=== PATIENT | female | born 1945 | race Caucasian/White ===

== ENCOUNTER → 2017-12-18 13:44 | Outpatient (CLI) | payer OTHER, SELFPAY ==
--- NOTE | 2017-12-20 08:23 | ONE_ITS ---
DATE OF SERVICE: December 18, 2017 ASSESSMENT: Lumbar strain, improved. PLAN: She understands she needs to continue with regular stretches. She can continue with the other conser vative measures as above. I'm releasing her today at [facility]. Greater than 50% of this visit was spent in planning and coordinating care. EMPLOYER: [employer] SUBJECTIVE: Mrs. French returns for further follow-up on low back pain which continues to be well-controlled. S he says she experiences an occasional tweak but it doesn't last. She's managing these minor flare- ups with occasional Aleve. She says she takes one tablet not even on a daily basis. She also uses I cy Hot which she tells me is quite helpful. When the pain does occur it's in the left lumbar region, it does not radiate. It is not associated with any particular numbness, tingling, or paresthesias o f lower extremities. REVIEW OF SYSTEMS: Feels generally well. Expresses some concern and distress about a current family issue which is trou yogesh to her. Otherwise she has no abdominal pain, nausea, vomiting, or GI complaints, numbness, tin gling, or paresthesias of lower extremities. No loss of bladder or bowel control. PAST MEDICAL HISTORY: 1. Carpal tunnel repair. 2. Cardiac murmur. 3. Hypertension. 4. Depression. 5. Anxiety. 6. Diabetes. CURRENT MEDICATIONS: 1. Lisinopril. 2. Metformin. 3. Levemir. 4. Vitamins. 5. Icy Hot PRN. 6. Aleve PRN. OBJECTIVE: General: Alert, pleasant, cooperative. She's a little weepy, again, related to an outside situation. Musculoskeletal exam: No tenderness to direct palpation over the lumbar vertebrae. Very mild tenderness over the left SI j oint. DTRs: Prepatellars are 1+ bilaterally. Achilles are 1+ bilaterally. Straight leg raises are negative. Each leg extends nearly 90 degrees without discomfort. There is a little hamstring tightness on the left. Range of motion: Fingertips reach to toes. There is no pain at the end of flexion, extension, latera l bend, or rotation. Heel and toe walk are intact. Sensory of lower extremities is intact.
== END ==
PROVIDERS: PCP Family Medicine; Visit Provider Nurse Practitioner Family
DX: S39.012D Strain of muscle, fascia and tendon of lower back, subsequent encounter (principal); M54.5 Low back pain
CPT/HCPCS: 99214

== ENCOUNTER → 2018-01-08 13:25 | Outpatient (CLI) | payer OTHER, SELFPAY ==
--- NOTE | 2018-01-08 13:00 | DI.REPORT_ITS ---
SYMPTOMS/DIAGNOSIS: NECK PAIN, ACUTE, M54.2 CERVICAL SPINE: Odontoid, AP, lateral and bilateral oblique views were obtained. No priors. The odontoid is intact. The lateral masses are well aligned. There is slight motion artifact present. There is normal alignment of the cervical spine. There is moderate disc space narrowing at C6-C7. Endplate osteophytes are seen from C4-5 through C6-C7. There are degenerative changes of the facets throughout the cervical spine. There is mild narrowing of the neural foramen on the right at C4-5, C5-6 and C6-7 and on the left at C4-5, and C5-6 and C6-7. No acute fractures or subluxations are seen. There is no significant prevertebral soft tissue swelling. IMPRESSION: Moderate cervical spondylosis.
== END ==
PROVIDERS: PCP Family Medicine; Visit Provider Nurse Practitioner Family
DX: M54.2 Cervicalgia (principal); M47.812 Spondylosis without myelopathy or radiculopathy, cervical region
CPT/HCPCS: 72050

== ENCOUNTER 2019-04-10 10:44 | Outpatient (REF) | payer OTHER, SELFPAY ==
[2019-04-10 12:48] LABS: ALT 23 U/L (14-59); AST 18 U/L (15-37); Albumin 3.6 g/dL (3.4-5.0); Alkaline Phosphatase 69 U/L (46-116); Anion Gap 9.5 mmol/L (3-11); BUN 14 mg/dL (7-18); Bilirubin, Total 0.4 mg/dL (0.2-1.0); CO2 27.5 mmol/L (21.0-32.0); CREATININE 0.87 mg/dL (0.55-1.02); Calcium 8.7 mg/dL (8.5-10.1); Chloride 102 mmol/L (98-107); Glucose 217 mg/dL (74-106); Potassium 4.5 mmol/L (3.5-5.1); Sodium 139 mmol/L (136-145); Total Protein 6.6 g/dL (6.4-8.2)
[2019-04-10 14:31] LABS: HCT 37.1 % (36.0-46.0); Mean Corp. HGB Concentration 32.3 g/dL (32.0-36.0); Mean Corpuscular Hemoglobin 30.8 pg (27.0-33.0); Mean Corpuscular Volume 95.4 fL (80-95); Platelet Count 362 x1000/uL (130-400); RBC 3.89 m/cumm (4.00-5.20); White Blood Cell Count 5.24 k/cumm (4.4-10.8)
== END 2019-04-10 11:04 ==
LOC: NCHCN 10:44
PROVIDERS: PCP Family Medicine; Visit Provider Family Medicine
DX: E11.9 Type 2 diabetes mellitus without complications (principal); H20.9 Unspecified iridocyclitis
CPT/HCPCS: 80053; 85027; 83036

== ENCOUNTER 2019-10-22 13:04 | Outpatient (REF) | payer OTHER, SELFPAY ==
[2019-10-23 11:29] LABS: COVID-19 RT-PCR UVMMC Result Negative (Negative)
== END 2019-10-22 13:24 ==
LOC: NCHCN 13:04
PROVIDERS: PCP Family Medicine; Visit Provider Family Medicine
DX: Z20.828 Contact with and (suspected) exposure to other viral communicable diseases (principal)
CPT/HCPCS: U0003

== ENCOUNTER 2020-07-27 01:23 | Outpatient (CLI) | payer MEDICARE, SELFPAY ==
--- NOTE | 2020-07-27 15:52 | DI.MAMMO_ITS ---
EXAM: MAMMO SCREENING CLINICAL HISTORY: SCREENING, Z12.31. TECHNIQUE: Bilateral full field digital CC and MLO mammographic images were obtained with 3D tomosyn thesis and utilizing computer aided detection (CAD). COMPARISON: Prior outside mammograms dating back to 2010, the most recent being February 2019. FINDINGS: There are no new findings in the immediate vicinity of the biopsy marker clips which are seen in both breasts. No new right breast findings. Stable benign microcalcifications again noted. In the left breast there is stable appearance of the microcalcifications but there is a possible subt le nodule measuring 7 x 5 millimeters located 4 cm in from the nipple on the MLO view. Spot compress ion view recommended. There is no new architectural distortion or skin thickening-traction IMPRESSION: 1. No radiographic evidence of malignancy in the right breast 2. Subtle suggestion of 7 x 5 millimeter left breast nodule as described above. Spot compression 2D and 3D views recommended and possible also ultrasound. BI-RADS Category 0 - Assessment Incomplete: Need additional imaging evaluation Breast Density - Category C - Heterogeneously dense Breast density Category C or D implies that the patient has dense breast tissue. Dense breast tissue can make it harder to find cancer on a mammogram. Dense breast tissue is also associated with an incr eased risk of breast cancer. This information about the result of the mammogram report was provided to the patient to raise their awareness. Use this report when you speak with the patient about their risks for breast cancer, which includes their family history. At that time, you may recommend additional screening tests (Ultrasoun d or MRI) as these tests may add significant information. A negative radiographic report should not delay biopsy if a dominant or clinically suspicious mass is present. Up to ten percent of cancers are not identified on mammography. A negative report may reinforce clinical impression. Adenosis and dense breasts may obscure an underlying neoplasm. False positive reports average 6 to 10%. Patient will receive a letter notifying them of these results.
== END 2020-07-27 01:43 ==
PROVIDERS: PCP Family Medicine; Visit Provider Family Medicine
DX: Z12.31 Encounter for screening mammogram for malignant neoplasm of breast (principal); R92.8 Other abnormal and inconclusive findings on diagnostic imaging of breast
CPT/HCPCS: 77063; 77067

== ENCOUNTER → 2020-08-03 02:33 | Outpatient (CLI) | payer OTHER, SELFPAY ==
--- NOTE | 2020-08-03 | DI.MAMMO_ITS ---
EXAM: MG MAMMO SCREEN CALL BACK UNI CLINICAL HISTORY: F/U MAMMO, SUBTLE SUGGESTION LT BREAST NODULE,. TECHNIQUE: This patient has now returned for sys 3D spot compression MLO view of left breast, as per recent screening mammogram 07/27/2020 COMPARISON: Prior mammograms dating back to 2010, the most recent being 07/27/2020. FINDINGS: Additional spot compression mammographic view performed today appears to dissipate the nodule describ ed on the recent screening mammogram. We nevertheless proceeded with ultrasound of the left breast. This revealed a solid corresponding fi nding at the 12 o'clock position which has the appearance of a 5 x 4 millimeter (wider than taller) p robable hemorrhagic microcyst. IMPRESSION: 5 x 4 millimeter 12 o'clock position nodule which is well-defined, wider than taller, and may represe nt a hemorrhagic microcyst. Appropriate follow-up, as discussed by myself with the patient today, is repeat left breast imaging i n 3 months time, this to include repeat left breast mammogram and ultrasound. BI-RADS Category 3 - 3 month - Probably Benign Finding: Recommend follow-up mammography in 3 months Breast Density - Category C - Heterogeneously dense Breast density Category C or D implies that the patient has dense breast tissue. Dense breast tissue can make it harder to find cancer on a mammogram. Dense breast tissue is also associated with an incr eased risk of breast cancer. This information about the result of the mammogram report was provided to the patient to raise their awareness. Use this report when you speak with the patient about their risks for breast cancer, which includes their family history. At that time, you may recommend additional screening tests (Ultrasoun d or MRI) as these tests may add significant information. A negative radiographic report should not delay biopsy if a dominant or clinically suspicious mass is present. Up to ten percent of cancers are not identified on mammography. A negative report may reinforce clinical impression. Adenosis and dense breasts may obscure an underlying neoplasm. False positive reports average 6 to 10%. Patient will receive a letter notifying them of these results.
--- NOTE | 2020-08-03 | DI.US_ITS ---
EXAM: US BREAST LT COMPLETE CLINICAL HISTORY: F/u mammo, subtle suggestion LT breast nodule. TECHNIQUE: Ultrasound examination of all 4 quadrants of the left breast was performed as well as the retroareolar regions. COMPARISON: Prior mammograms were reviewed, most recent being screening mammogram of 07/27/2020 and today's diagnostic left breast mammographic image.. FINDINGS: There is a solitary ultrasound finding which is at the 12 o'clock position. This is an oval well-def ined slightly wider than taller 5 x 4 millimeter nodule which is either hemorrhagic microcyst or smal l solid nodule. No other focal ultrasound findings in the 4 quadrants. IMPRESSION: 5 x 4 millimeter 12 o'clock position nodule, possibly hemorrhagic microcyst or small solid nodule. R ecommend repeat left breast mammogram and ultrasound in 3 months. Findings are recommendations were discussed by myself with the patient today. BI-RADS Category 3 - 3 month - Probably Benign Finding: Recommend follow-up mammography in 3 months Breast Density - Category C - Heterogeneously dense Breast density Category C or D implies that the patient has dense breast tissue. Dense breast tissue can make it harder to find cancer on a mammogram. Dense breast tissue is also associated with an incr eased risk of breast cancer. This information about the result of the mammogram report was provided to the patient to raise their awareness. Use this report when you speak with the patient about their risks for breast cancer, which includes their family history. At that time, you may recommend additional screening tests (Ultrasoun d or MRI) as these tests may add significant information. A negative radiographic report should not delay biopsy if a dominant or clinically suspicious mass is present. Up to ten percent of cancers are not identified on mammography. A negative report may reinforce clinical impression. Adenosis and dense breasts may obscure an underlying neoplasm. False positive reports average 6 to 10%. Patient will receive a letter notifying them of these results.
== END ==
PROVIDERS: PCP Family Medicine; Visit Provider Family Medicine
DX: Z12.31 Encounter for screening mammogram for malignant neoplasm of breast (principal); R92.8 Other abnormal and inconclusive findings on diagnostic imaging of breast; N60.02 Solitary cyst of left breast
CPT/HCPCS: 76642; 77063; 77067

== ENCOUNTER 2020-11-09 02:13 | Outpatient (CLI) | payer MEDICARE, SELFPAY ==
--- NOTE | 2020-11-09 15:31 | DI.MAMMO_ITS ---
Exam(s) MG MAMMO DIAGNOSTIC UNI EXAM: MAMMO DIAGNOSTIC UNI-LEFT CLINICAL HISTORY: HX OF ABNL MAMMO, Z87.898. TECHNIQUE: Unilateral spot mammographic images were obtained with 3D Tomosynthesistechnique and util izing computer aided detection (CAD). COMPARISON: Prior mammograms dating back to 2012, the most recent being July 1020. Prior ultrasoun d July 2020 was also reviewed. FINDINGS: Fibroglandular tissue in left breast is again noted be moderately dense, this decreasing sensitivity mammogram finding in lesions. There are no difficult radiographic findings in the immediate vicinity of biopsy marker clip the mid aspect of the left breast. The previously described nodular density seen on the mammogram of 021 is less evident on the present study. However, please note that there is still no ultrasound finding at this location on today's ultrasound which is unchanged from the ultrasound of July 2020. Please see that separate ultrasound report. IMPRESSION: No radiographic evidence of malignancy However, there is still a finding at the 12 o'clock position of the left breast on ultrasound examina tion measuring approximately 5 x 4 millimeters and probably hemorrhagic cyst, this remaining unchange d in size configuration ultrasound when compared to 08/03/2020. Appropriate follow-up is repeat left breast ULTRASOUND in 6 months. The patient was informed of the findings and follow-up recommendations prior to leaving the [facility] today. BI-RADS Category 3 - 6 month - Probably Benign Finding: Recommend follow-up ULTRASOUND in 6 months Breast Density - Category C - Heterogeneously dense Breast density Category C or D implies that the patient has dense breast tissue. Dense breast tissue can make it harder to find cancer on a mammogram. Dense breast tissue is also associated with an incr eased risk of breast cancer. This information about the result of the mammogram report was provided to the patient to raise their awareness. Use this report when you speak with the patient about their risks for breast cancer, which includes their family history. At that time, you may recommend additional screening tests (Ultrasoun d or MRI) as these tests may add significant information. A negative radiographic report should not delay biopsy if a dominant or clinically suspicious mass is present. Up to ten percent of cancers are not identified on mammography. A negative report may reinforce clinical impression. Adenosis and dense breasts may obscure an underlying neoplasm. False positive reports average 6 to 10%. Patient will receive a letter notifying them of these results.
--- NOTE | 2020-11-09 15:45 | DI.US_ITS ---
Exam(s) US BREAST LT COMPLETE EXAM: US BREAST LT COMPLETE CLINICAL HISTORY: history of abnormal mammo. TECHNIQUE: Complete ultrasound of the left breast was performed including all 4 quadrants, the retro areolar region, and the ipsilateral axilla. COMPARISON: Prior mammograms were reviewed. Prior ultrasound performed 08/03/2020 was reviewed. FINDINGS: At 12 o'clock position the previously described 5 x 4 millimeter nodule-probable hemorrhagic microcys t at the 12 o'clock position is unchanged in size and configuration. Today's study also reveals a 3 millimeter microcysts at the 1 o'clock position and another small 3 mi llimeter microcyst at the 11 o'clock position. No findings in the immediate retroareolar region. Left axilla is negative for adenopathy IMPRESSION: Stable appearance of the 5 x 4 millimeter nodule at 12 o'clock position, unchanged from the ultrasoun d examination of 3 months ago (08/03/2020). This is hidden subjacent to her dense fibroglandular tis wally on mammography. Appropriate follow-up is repeat left breast ULTRASOUND in 6 months. . Findings and recommendations were discussed by myself with the patient today. BI-RADS Category 3 - 6 month - Probably Benign Finding: Recommend follow-up mammography in 6 months Breast Density - Category C - Heterogeneously dense Breast density Category C or D implies that the patient has dense breast tissue. Dense breast tissue can make it harder to find cancer on a mammogram. Dense breast tissue is also associated with an incr eased risk of breast cancer. This information about the result of the mammogram report was provided to the patient to raise their awareness. Use this report when you speak with the patient about their risks for breast cancer, which includes their family history. At that time, you may recommend additional screening tests (Ultrasoun d or MRI) as these tests may add significant information. A negative radiographic report should not delay biopsy if a dominant or clinically suspicious mass is present. Up to ten percent of cancers are not identified on mammography. A negative report may reinforce clinical impression. Adenosis and dense breasts may obscure an underlying neoplasm. False positive reports average 6 to 10%. Patient will receive a letter notifying them of these results.
== END 2020-11-09 02:33 ==
PROVIDERS: PCP Family Medicine; Visit Provider Family Medicine
DX: R92.2 Inconclusive mammogram (principal); N63.25 Unspecified lump in the left breast, overlapping quadrants; Z87.898 Personal history of other specified conditions
CPT/HCPCS: 76642; 77061; 77065; G0279

== ENCOUNTER 2021-05-17 00:30 | Outpatient (CLI) | payer MEDICARE, SELFPAY ==
--- NOTE | 2021-05-17 | DI.US_ITS ---
Exam(s) US BREAST LT COMPLETE EXAM: US BREAST LT COMPLETE CLINICAL HISTORY: ABNL MAMMO LT, R92.8, 6 MO F/U TECHNIQUE: Ultrasound left breast performed using standard protocol. COMPARISON: MG MG MAMMO SCREENING from 07/27/2020 US US BREAST LT COMPLETE from 11/09/2020 MG MG MAMMO DIAGNOSTIC UNI from 11/09/2020 FINDINGS: No change 5 millimeter circumscribed hypoechoic nodule 12 o'clock position 1 cm from the nipple. 2 m illimeter cyst is noted in the 1 o'clock position 1 cm from the nipple. Previously noted cyst in the 11 o'clock position was not able to be located today. IMPRESSION: No sonographically suspicious finding. BI-RADS Category 2 - Benign Findings The patient is due for bilateral screening mammography July 2021. DATA REPOSITORY:
== END 2021-05-17 00:50 ==
PROVIDERS: PCP Family Medicine; Visit Provider Family Medicine
DX: R92.8 Other abnormal and inconclusive findings on diagnostic imaging of breast (principal); N60.12 Diffuse cystic mastopathy of left breast
CPT/HCPCS: 76642

== ENCOUNTER 2021-05-24 10:44 | Outpatient (REF) | payer MEDICARE, SELFPAY ==
--- NOTE | 2021-05-24 11:00 | SKI_PTH ---
PATIENT: Bettye French LOC: [facility]GED WITH [facility]#:[id number] AGE/SX: 76/F ROOM: RE05/24/[address]: Eriberto Castaneda : 1945 BED: DIS: 05/24/2021 SPEC #: [id number] RECD: 05/24/21 16:46 STATUS: TATE REQ #: [id number] COURTNEY: 05/24/21 11:[address]: Eriberto Castaneda DEPT: Surgical Specimen RECD BY: Rosemarie Gonzales ENTERED: 05/24/21 16:46 SP TYPE: JOHAN MOTLEY DR: Macrina Gonzales Tissues: 1 - SKIN BIOPSY(SHAVE/PUNCH) Procedures: SKIN LEVEL 4 Comments: [id number]
[2021-05-24 14:53] LABS: HCT 37.8 % (36.0-46.0); HGB 12.4 g/dL (11.2-15.7); MCH 32.1 pg (27.0-33.0); MCHC 32.8 % (32.0-36.0); MCV 97.9 fL (80-95); MPV 9.8 fL (8.0-11.0); Platelet Count 331 10^3/uL (130-400); RBC 3.86 10^6/uL (3.93-5.22); RDW 12.7 % (11.7-14.6); WBC 6.19 10^3/uL (4.4-10.8)
[2021-05-24 15:21] LABS: ALT 24 U/L (14-59); AST 19 U/L (15-37); Alkaline Phosphatase 67 U/L (46-116); Anion Gap 7.3 mmol/L (3-11); BUN 16 mg/dL (7-18); Bilirubin, Total 0.6 mg/dL (0.2-1.0); CO2 28.7 mmol/L (21.0-32.0); Chloride 102 mmol/L (98-107); Glucose 180 mg/dL (74-106); Potassium 4.9 mmol/L (3.5-5.1); Sodium 138 mmol/L (136-145); Total Protein 6.7 g/dL (6.4-8.2)
== END 2021-05-24 10:45 | disposition home or self-care (01) ==
LOC: NCHCN 10:44
PROVIDERS: PCP Family Medicine; Visit Provider Family Medicine
DX: I10 Essential (primary) hypertension (principal); L82.1 Other seborrheic keratosis
CPT/HCPCS: 80053; 85027; 88305

== ENCOUNTER 2021-07-12 01:32 | Outpatient (CLI) | payer MEDICARE, SELFPAY ==
--- NOTE | 2021-07-12 14:00 | NS.NUTBLAN_ITS ---
Bettye returns for diabetes self management education. DM meds: 5 mg glipizide, 40 units lantus hs, 1000 mg metformin q AM. Blood sugar logs (06/29-07/12/21) Fasting blood sugars: 84, 91, 180, 150, 90 pre meal blood sugars: 180, 200, 220, 120, 63 Post prandial blood sugars: 250, 350, 370, 150, 180 Most recent A1C reported 8.8%, down from 10% couple years ago. 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 She reports that she is able to notice when her blood sugars go below 80 mg/dl. The hypoglycemic event occurred when she ate dinner a couple of hours late. We discussed the 15/15 rule for low blood sugars and importance of keeping carb snacks handy when these events occur. We reviewed her hyperglycemic events pre and post meals. She has not made any changes to her diet after seeing my colleague last month, however, overall her diet is well balanced. She would benefit from carb counting and keeping carb intake to 30-35 g per meal, paired with 15-25 g protein. We discussed treatment for hyperglycemia by increasing fluid intake and calling PCP if blood sugars above 300 mg/dl. Reviewed signs and symptoms of HHNK (hyperglycemic hyperosmolar non keto acidosis in elderly). Bettye would like to get off long acting insulin as it is very costly (co pay $220/month). Recommend considering a GLP1ra or SGLT2 as glycemic management still not in range with current long acting dose. Goal is for A1C <8.5% in view of age and comorbidities. No follow up planned at this time.
== END 2021-07-12 01:33 | disposition home or self-care (01) ==
LOC: DS 01:33
PROVIDERS: PCP Family Medicine; Visit Provider Dietitian, Registered
DX: E11.9 Type 2 diabetes mellitus without complications (principal); Z79.4 Long term (current) use of insulin; Z79.84 Long term (current) use of oral hypoglycemic drugs; Z71.3 Dietary counseling and surveillance
CPT/HCPCS: 97803

== ENCOUNTER 2021-08-02 02:20 | Outpatient (CLI) | payer MEDICARE, SELFPAY ==
--- NOTE | 2021-08-02 | DI.MAMMO_ITS ---
Exam(s) MAMMO SCREENING EXAM: MAMMO SCREENING CLINICAL HISTORY: SCREENING FOR BREAST CANCER Z12.39. TECHNIQUE: Bilateral full field digital CC and MLO mammographic images were obtained with 3D tomosyn thesis and utilizing computer aided detection (CAD). COMPARISON: Prior mammograms were reviewed, the most recent being July 2020 and 11/09/2020.. Prior left breast ultrasound examinations of November 02 and June 05 reviewed FINDINGS: There are no new findings in the immediate vicinity of the biopsy marker clips in each breast. There is a microcalcification in the left breast located 5 cm in from the nipple on CC view which is unchanged from prior studies. There are no new spiculated masses nor new malignant appearing microcalcification groups. Small medially located nodule in left breast is unchanged from prior studies. On the present right breast MLO view there are 2 potential findings.... First leak, there is an asymmetric density-possible nodule measuring 5 x 5 millimeters located 4 cm i n from the nipple on the 3D MLO view. More superiorly on the right MLO view there is a 10 by a 8 mil limeter asymmetric density-possible nodule located 7.5 cm in from the nipple which is more evident on prior studies.. There are no new malignant-appearing microcalcification groups in either breast. There is no new architectural distortion or skin thickening-traction. IMPRESSION: 1. No obvious radiographic evidence of malignancy in left breast. 2. 2 asymmetric densities-possible nodules in the right breast. Both best seen on 3D MLO imaging. S pot compression views and ultrasound recommended. BI-RADS Category 0 - Assessment Incomplete: Need additional imaging evaluation Breast Density - Category B - Scattered areas of fibroglandular density Breast density Category C or D implies that the patient has dense breast tissue. Dense breast tissue can make it harder to find cancer on a mammogram. Dense breast tissue is also associated with an incr eased risk of breast cancer. This information about the result of the mammogram report was provided to the patient to raise their awareness. Use this report when you speak with the patient about their risks for breast cancer, which includes their family history. At that time, you may recommend additional screening tests (Ultrasoun d or MRI) as these tests may add significant information. A negative radiographic report should not delay biopsy if a dominant or clinically suspicious mass is present. Up to ten percent of cancers are not identified on mammography. A negative report may reinforce clinical impression. Adenosis and dense breasts may obscure an underlying neoplasm. False positive reports average 6 to 10%. Patient will receive a letter notifying them of these results.
== END 2021-08-02 02:40 ==
PROVIDERS: PCP Family Medicine; Visit Provider Family Medicine
DX: Z12.31 Encounter for screening mammogram for malignant neoplasm of breast (principal); R92.8 Other abnormal and inconclusive findings on diagnostic imaging of breast
CPT/HCPCS: 77063; 77067

== ENCOUNTER 2021-08-30 01:39 | Outpatient (CLI) | payer MEDICARE, SELFPAY ==
--- NOTE | 2021-08-30 13:56 | DI.MAMMO_ITS ---
Exam(s) MG MAMMO SCREEN CALL BACK UNI US BREAST RT LIMITED EXAM: MG MAMMO SCREEN CALL BACK UNI CLINICAL HISTORY: F/U ABNL MAMMO, TWO ASYMMETRIC DENSITIES IN RT BREAST ON MLO VIEW. TECHNIQUE: Craniocaudal and mediolateral oblique spot compression digital Mammography views of the r ight breast with Computer Aided Diagnosis followed by Tomosynthesis and right breast ultrasound. COMPARISON: Mammograms back to 2013. FINDINGS: Mammography/Tomosynthesis: Masses/Architectural Distortion: Increased focal density in the upper outer quadrant of the right kami ast posteriorly near an area of biopsy marker, unchanged in appearance over time. Microcalcifictions: No suspicious pleomorphic-type are seen. Skin Thickening/Nipple Retraction: None. Right breast US: Echotexture: Normal appearance of the glandular tissue. Shadowing: No suspicious foci. Shadowing is noted related to biopsy marker clip. No adjacent mass. Cyst: None. Solid lesions: None seen. Ductal dilation: None. IMPRESSION: 1. No evidence of malignancy is noted. 2. Unless there is more urgent need, follow-up screening mammography is recommended, as per [place] [employer] guidelines. 3. The findings were discussed with the patient on the date of the examination. BI-RADS Category 2 - Benign Findings Breast Density - Category B - Scattered areas of fibroglandular density A negative radiographic report should not delay biopsy if a dominant or clinically suspicious mass is present. Up to ten percent of cancers are not identified on mammography. A negative report may reinforce clinical impression. Adenosis and dense breasts may obscure an underlying neoplasm. False positive reports average 6 to 10%. Patient will receive a letter notifying them of these results.
== END 2021-08-30 01:59 ==
PROVIDERS: PCP Family Medicine; Visit Provider Family Medicine
DX: Z12.31 Encounter for screening mammogram for malignant neoplasm of breast (principal); R92.8 Other abnormal and inconclusive findings on diagnostic imaging of breast; N60.81 Other benign mammary dysplasias of right breast; N63.11 Unspecified lump in the right breast, upper outer quadrant
CPT/HCPCS: 76642; 77063; 77067

== ENCOUNTER 2021-10-04 11:47 | Outpatient (REF) | payer MEDICARE, SELFPAY ==
[2021-10-04 15:28] LABS: HCT 33.5 % (36.0-46.0); HGB 10.7 g/dL (11.2-15.7); MCH 32.1 pg (27.0-33.0); MCHC 31.9 % (32.0-36.0); MCV 101 fL (80-95); MPV 10.3 fL (8.0-11.0); Platelet Count 257 10^3/uL (130-400); RBC 3.33 10^6/uL (3.93-5.22); RDW 13.6 % (11.7-14.6); RDW-SD 49.2 fL; WBC 7.23 10^3/uL (4.4-10.8)
[2021-10-04 16:07] LABS: ALT 25 U/L (14-59); AST 18 U/L (15-37); Albumin 3.6 g/dL (3.4-5.0); Alkaline Phosphatase 69 U/L (46-116); Anion Gap 9.4 mmol/L (3-11); BUN 17 mg/dL (7-18); Bilirubin, Total 0.3 mg/dL (0.2-1.0); CO2 24.6 mmol/L (21.0-32.0); Calcium 8.6 mg/dL (8.5-10.1); Chloride 102 mmol/L (98-107); Glucose 265 mg/dL (74-106); Potassium 5.2 mmol/L (3.5-5.1); Sodium 136 mmol/L (136-145); Total Protein 6.5 g/dL (6.4-8.2)
== END 2021-10-04 11:48 | disposition home or self-care (01) ==
LOC: NCHCN 11:47
PROVIDERS: PCP Family Medicine; Visit Provider Family Medicine
DX: I10 Essential (primary) hypertension (principal); E11.9 Type 2 diabetes mellitus without complications
CPT/HCPCS: 80053; 85027

== ENCOUNTER 2021-11-01 13:40 | Outpatient (REF) | payer MEDICARE, SELFPAY ==
[2021-11-01 23:33] LABS: Iron 139 ug/dL (50-170); Total Iron Binding Capacity 278 ug/dL (250-450); Transferrin Sat 50 % (15-50)
[2021-11-01 23:46] LABS: Ferritin 123 ng/mL (8-252); Vitamin B12 668 pg/mL (193-986)
== END 2021-11-01 13:41 | disposition home or self-care (01) ==
LOC: NCHCN 13:40
PROVIDERS: PCP Family Medicine; Visit Provider Family Medicine
DX: D64.9 Anemia, unspecified (principal); Z79.899 Other long term (current) drug therapy
CPT/HCPCS: 82607; 82728; 83540; 83550

== ENCOUNTER 2022-01-31 17:55 | Outpatient (REF) | payer MEDICARE, SELFPAY ==
[2022-01-31 16:59] LABS: Abs Immature Grans 0.02 10^3/uL (0.0-0.06); Absolute Basophil Count 0.04 10^3/uL (0.0-0.2); Absolute Eosinophil Count 0.12 10^3/uL (0.0-0.7); Absolute Lymphocyte Count 1.25 10^3/uL (1.2-3.4); Absolute Monocyte Count 0.61 10^3/uL (0.1-0.8); Absolute Neutrophil Count 4.65 10^3/uL (1.2-6.7); Basophils % 0.6; Eosinophils % 1.8; HCT 37.9 % (36.0-46.0); Immature Grans % 0.3; Lymphocytes % 18.7; MCH 32.7 pg (27.0-33.0); MCHC 34.3 % (32.0-36.0); MCV 95 fL (80-95); MPV 9.9 fL (8.0-11.0); Monocytes % 9.1; Neutrophils % 69.5; Platelet Count 368 10^3/uL (130-400); RBC 3.98 10^6/uL (3.93-5.22); RDW 12.4 % (11.7-14.6); RDW-SD 42.5 fL; WBC 6.69 10^3/uL (4.4-10.8)
[2022-01-31 17:18] LABS: ALT 29 U/L (14-59); AST 18 U/L (15-37); Alkaline Phosphatase 69 U/L (46-116); Anion Gap 9.1 mmol/L (3-11); BUN 18 mg/dL (7-18); Bilirubin, Total 0.4 mg/dL (0.2-1.0); CO2 27.9 mmol/L (21.0-32.0); Chloride 101 mmol/L (98-107); Estimated GFR 58.75 (mL/min/1.73m2); Glucose 102 mg/dL (74-106); Potassium 4.6 mmol/L (3.5-5.1); Sodium 138 mmol/L (136-145); Total Protein 7.1 g/dL (6.4-8.2)
== END 2022-01-31 17:56 | disposition home or self-care (01) ==
LOC: NCHCN 17:55
PROVIDERS: PCP Family Medicine; Visit Provider Family Medicine
DX: R06.09 Other forms of dyspnea (principal); E11.9 Type 2 diabetes mellitus without complications; D64.9 Anemia, unspecified
CPT/HCPCS: 80053; 85025

== ENCOUNTER → 2022-02-17 01:18 | Outpatient (CLI) | payer MEDICARE, SELFPAY ==
--- NOTE | 2022-02-17 08:45 | DI.NM_ITS ---
APPROVED REPORT Exam: Exercise Treadmill Patient Location: Out-Patient Room/Bed: Stress Nurse: Haley Ricks RN Ordering Provider:JAKE CARLTON, Contact Number: [phone] BMI: 31.55 Baseline Rhythm: Sinus Bradycardia Comment: Negative p wave and QRS in aVR, Negative QRS and positive T wave in V1, Negative T wave in a VL Indications: HAWKINS, Diabetes Medical History Medical History: HTN, DM II, Current smoker Cardiac Medications: Lisinopril, Ins[place] glargine, ASA, Metformin Allergies: Sulfa Cardiac Risk Factors: +family history, HTN, DM, current smoker, obesity Previous Cardiac Procedures: None Pretest Chest Pain Characteristics: None Exercise History: Indeterminate Physical Disabilities: None Lung Sounds: Clear to air auscultation Heart Sounds: Regular Stress Test Details Test: Exercise stress testing was performed using a River protocol. Nuclear Acquisition: Rest Tc-99m/Stress Tc-99m 1 day Rest Isotope: Tc-99m Sestamibi. Dose: 10 Date: 02/17/2022 Injection Time: 09:00 Stress Isotope: Tc-99m Sestamibi. Dose: 32 Date: 02/17/2022 Injection Time: 10:30 HR Resting HR Supine: 54 bpm Max Heart Rate (APMHR): 145.330472 bpm Resting HR Standin bpm Target HR (85% APMHR): 123.086891 bpm Max HR Achieved: 128 bpm % of APMHR: 88.28 Recovery HR: 58 bpm HR response to stress: Normal HR response to stress BP Resting BP Supine: 170/70 mmHg Resting BP Standin/74 mmHg Max BP: 220/80 mmHg Recovery BP: 150/78 mmHg BP response to stress: Normal blood pressure response to stress. ECG Resting ECG: Sinus Bradycardia Ectopy: None Comment: Negative p wave and QRS in aVR, Negative QRS and positive T wave in V1, Negative T wave in a VL Stress ECG: Sinus Tachycardia ST Change: Downsloping ST depression Lead(s): II, III, aVF Stage: [address] Deviation: 0.5-1 mm Arrhythmia: None, None, APC's, VPC's, Atrial fibrillation Recovery ECG: Sinus Rhythm Recovery ST Change: Resolved w/in 1 min. of recovery Recovery Arrhythmia: PAC's Clinical Reason for Termination: Fatigue Stress Symptoms: General Fatigue Exercise duration: 5 min24 sec Highest Stage Reached: Stage 2: 2.5 mph at 12% grade. Exercise capacity: 7.05 METs Angina Score: None Reina Treadmill Score: 3.5 Rate Pressure Product: 60070 Stress ECG Conclusion 1. Electrocardiogram showed sinus rhythm, minor nondiagnostic ST abnormalities 2. Patient exercised on River protocol and completed a workload of 7.05 METS, limited by fatigue 3. Normal heart rate and blood pressure response to exercise. Patient achieved 88% of predicted hear t rate for age 4. Electrocardiographic portion of the test was notable for approximately [address] depressi on at peak exercise which became downsloping in recovery 5. See MPI report Reina Treadmill Score is 3.5 which is Moderate risk. Stress Test Summary STAGE Time (mins) Speed (mph) Grade (%) HR BP SpO2 SYMPTOMS METS Supine 54 170/70 Standing 59 176/74 96% 1 3 1.7 10 105 190/80 98% 4.5 2 6 2.5 12 126 200/80 7 1 min recovery 100 220/80 3 min recovery 62 160/78 97% 6 min recovery 58 150/78 98% MPI Conclusion Normal myocardial perfusion without evidence of ischemia or prior infarction EF 66%, normal wall motion Radiologist Interpretation Radiologist agrees with Case Advocate's Interpretation. Radiologist Interpretation by: Carl Yang MD Interpretation Date/Time: 02/17/2022 16:15:45
== END ==
PROVIDERS: PCP Family Medicine; Visit Provider Family Medicine
DX: R06.09 Other forms of dyspnea (principal)
CPT/HCPCS: 78452; 93016; 93018; 93017

== ENCOUNTER 2022-07-12 11:33 | Emergency (ER) | payer MEDICARE, SELFPAY ==
[2022-07-12 11:49] VITALS: BP 130/50; PULSE 60; RESP 14; TEMP 36.7; O2SAT 97
--- NOTE | 2022-07-12 12:20 | DI.RAD_ITS ---
Exam(s) XR FOOT RT COMPLETE EXAM: XR FOOT RT COMPLETE CLINICAL HISTORY: Heel and Lateral Foot Pain. TECHNIQUE: 2D digital imaging was performed. COMPARISON: No exams were available for comparison FINDINGS: 3 views No evidence of fracture or diastasis of the Lisfranc joint. Small osteophytic density seen off the l ateral aspect of the head of the proximal phalanx of the 5th toe. In 5th small inferior calcaneal sp ur noted. Dorsal talar beak is noted. Minimal degenerative changes. No osseous lesions. No erosio ns. Great toe metatarsophalangeal joint exhibits mild-moderate degenerative changes. No osseous les ions. No radiopaque foreign body and no radiographic evidence of osteomyelitis. IMPRESSION: Mild findings as described above. DATA REPOSITORY: RADIATION DOSE DELIVERED:
--- NOTE | 2022-07-12 12:24 | ED.GENADUL_ITS ---
Discharge Plan Disposition Patient Disposition: Home Discharge Details Clinical Impression: Acute pain of right foot Primary Care Provider: Eriberto Castaneda ED Provider: Ashu Pavon Home Meds and New Rx's Prescriptions: Continued citalopram 10 MG/5 ML solution 40 mg PO DAILY cod liver oil 1 EACH capsule 1 ea PO DAILY metformin [Glucophage] 1,000 MG tablet 1,000 mg PO DAILY aspirin [Aspirin Low-Strength] 81 MG tablet,chewable 81 mg PO DAILY vitamin B complex [B-Complex] 1 EACH tablet 1 ea PO DAILY folic acid 1 MG tablet 1 mg PO BID calcium carbonate [Calci-Chew] 500 MG tablet,chewable 500 mg PO DAILY lisinopril 5 MG tablet 10 mg PO DAILY methotrexate sodium [Methotrexate (Anti-Rheumatic)] 2.5 MG tablets,dose pack 20 mg PO .WEEKLY magnesium chloride [Mag 64] 64 MG tablet,delayed release (DR/EC) 64 mg PO BID Qty: 30 0RF insulin glargine [Lantus U-100 Insulin] 100 UNIT/ML solution 23 unit SQ DAILY hydrocodone-chlorpheniramine 1 ML suspension,extended rel 12 hr 5 ml PO HS PRN PRNQty: 30 0RF Discharge Instructions Additional Instructions: Please read all of the information that accompanies these instructions. You were seen in the emergency department for your foot pain. Your x-ray showed no sign of any fractures but please wear a hard soled shoe and follow-up with the podiatry team this morning at 9 AM. Their address is [address] [place] [address] in [place]. Please return to the emergency department if if you lose feeling in your foot or have any other concerns. For your pain please take medications as follows: 1. Take acetaminophen (Tylenol), 1,000 mg (two 500 mg tabs) every 6 hours Discharge Data Discharge Date/Time-TO BE ENTERED AT DEPARTURE: 07/12/22 14:16 Medical Decision Making Medical Records Medical records narrative: This is a normothermic and not tachycardic 77-year-old female with atraumatic right foot pain primarily in her right heel concerning for fracture versus ligamentous injury. Will obtain plain films to assess for any acute osseous abnormalities and advised PMD follow-up for possibility of MRI if x-rays are negative. She did not actually load her foot and so my suspicion is low for calcaneal fracture despite her calcaneal tenderness. She has no midfoot instability to suggest Lisfranc injury. She has no significant tenderness on her right lateral foot to suggest Gutiérrez fracture. No swelling or erythema to suggest cellulitis. No pain out of proportion to suggest necrotizing soft tissue infection. Will treat with acetaminophen. 1:52 PM Patient had no acute abnormalities on her radiology read of her right foot plain films however there were some chronic abnormalities and given her pain with decreased mobility I spoke with Dr. Snowden from podiatry. She will help to arrange outpatient follow-up for the patient's at 9 AM this . We will make patient weightbearing tolerated as in a short walking boot with acetaminophen as needed for analgesia. HPI General Date/Time Provider Initiated Documentation: 07/12/22 12:16 . HPI Narrative: This is a 77-year-old female arrived via private vehicle in the setting of right heel pain and lateral foot pain for the past approximately 2 weeks. 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 She has had worsening pain when ambulating. Her PCP advised her to come to the emergency department for an x-ray. She denies any specific trauma to her foot. She has never had any surgeries in the past to her foot. She has not had any warmth nor swelling in her right foot. She has had no calf pain nor any shortness of breath or chest pain. Related Data Home Medications Medication Instructions Recorded Confirmed Aspirin Low-Strength 81 mg 81 mg PO DAILY 08/20/12 01/03/16 chewable tablet (aspirin) B-Complex (vitamin B complex) 1 ea PO DAILY 08/20/12 01/03/16 Calci-Chew 500 mg calcium (1,250 500 mg PO DAILY 08/20/12 01/03/16 mg) tablet (calcium carbonate) Glucophage 1,000 mg tablet 1,000 mg PO DAILY 08/20/12 01/03/16 (metformin) Methotrexate (Anti-Rheumatic) 2.5 20 mg PO .WEEKLY 08/20/12 01/03/16 mg tablets in a dose pack (methotrexate sodium) citalopram 10 mg/5 mL oral solution 40 mg PO DAILY 08/20/12 01/03/16 cod liver oil 1 ea PO DAILY 08/20/12 01/03/16 folic acid 1 mg tablet 1 mg PO BID 08/20/12 01/03/16 lisinopril 5 mg tablet 10 mg PO DAILY 08/20/12 01/03/16 magnesium chloride 64 mg 64 mg PO BID ##30 05/01/13 01/03/16 (magnesium chloride) tablet,delayed release (Mag 64) insulin glargine 100 unit/mL 23 unit SQ DAILY 01/03/16 01/03/16 subcutaneous solution (Lantus U-100 Insulin) hydrocodone 10 mg-chlorpheniramine 5 ml PO HS PRN PRN #30 mL 08/06/16 8 mg/5 mL oral susp extend.rel 12hr Previous Rx's Medication Instructions Recorded magnesium chloride 64 mg 64 mg PO BID ##30 05/01/13 (magnesium chloride) tablet,delayed release (Mag 64) hydrocodone 10 mg-chlorpheniramine 5 ml PO HS PRN PRN #30 mL 08/06/16 8 mg/5 mL oral susp extend.rel 12hr Allergies Allergy/AdvReac Type Severity Reaction Status Date / Time Sulfa (Sulfonamide Allergy Intermediate Nausea Unverified 08/06/16 19:50 Antibiotics) General Stated Complaint: Orthopedic PETEY: 4 PFSH All Active Problems (Updated 07/12/22 @ 13:54 by Ashu Pavon MD) Acute pain of right foot (Acute) Social History Smoking/Tobacco Use Status: Current every day Smoking risk assessment performed?: Yes Drug use: Never Do you feel safe at home: Yes Do you feel safe in your relationship?: Yes Exam Narrative Exam Narrative: General: Well-appearing in no acute distress speaking in complete sentences. Head: Normocephalic, atraumatic Ear, nose, mouth, throat: Grossly normal inspection. Normal voice, handling secretions normally. Neck: Trachea midline. Cardiovascular: Well-perfused distal extremities. Respiratory: Nonlabored respiration. Gastrointestinal: Nondistended abdomen. Musculoskeletal: No edema. Moving all 4 extremities spontaneously. Right foot warm and well-perfused. No significant midfoot instability. Mild calcaneal tenderness. 5 out of 5 strength right foot dorsi and plantarflexion. No forefoot pain. No medial nor malleoli or tenderness. No tenderness in calf. No erythema. No fluctuance. No ecchymoses or lacerations. Skin: Normal for age and race, grossly normal temperature and turgor. No acute rash. Neurologic: Alert and appropriate, no apparent acute deficits. Psychiatric: Mood and manner are appropriate. Grooming and personal hygiene are appropriate. Course Vital Signs Vital signs: Vital Signs Temperature 36.7 C 07/12/22 11:49 Pulse 60 07/12/22 11:49 Respiratory Rate 14 07/12/22 11:49 Blood Pressure 130/50 L 07/12/22 11:49 Pulse Oximetry 97 07/12/22 11:49 Temperature 36.7 C 07/12/22 11:49 Temperature Source Oral 07/12/22 11:49 Pulse 60 07/12/22 11:49 Respiratory Rate 14 07/12/22 11:49 Respiratory Effort Normal, Non-Labored 07/12/22 11:53 Blood Pressure 130/50 L 07/12/22 11:49 Blood Pressure Position Sitting 07/12/22 11:49 Pulse Oximetry 97 07/12/22 11:49 Oxygen Delivery Method Room Air 07/12/22 11:49 Oxygen Flow Rate 0 07/12/22 11:49 Pain Level 8 07/12/22 11:49 Comment While standing, 0/10 while resting 07/12/22 11:49
[2022-07-12 12:48] VITALS: BP 103/65; PULSE 53; O2SAT 94
[2022-07-12] MEDS: Acetaminophen 500 MG TAB 1000 MG PO (13:02)
[2022-07-12 14:14] VITALS: BP 129/72; PULSE 51; RESP 16; TEMP 36.4; O2SAT 93
== END 2022-07-12 14:16 | disposition home or self-care (01) ==
PROVIDERS: Emergency Provider Emergency Medicine; PCP Family Medicine
DX: M79.671 Pain in right foot (principal)
CPT/HCPCS: 99283; 73630; 99282

== ENCOUNTER 2022-08-09 11:24 | Outpatient (CLI) | payer MEDICARE, SELFPAY ==
--- NOTE | 2022-08-09 | DI.RAD_ITS ---
Exam(s) XR CHEST 2V PA LATERAL EXAM: XR CHEST 2V PA LATERAL CLINICAL HISTORY: SYMPTOMS OF RESPIRATORY INFECTION R09.89 TECHNIQUE: 2D digital imaging was performed of the chest. Two images were obtained. PA and lateral views were obtained. COMPARISON: CR CHEST 2 VIEWS PA,LAT from 08/06/2016 FINDINGS: MEDIASTINUM: Normal. HEART: Normal. PULMONARY VASCULATURE: Normal. LUNGS: No focal consolidating infiltrates are seen. The lungs appear hyperinflated with flattened di aphragms suggesting underlying COPD. PLEURAL SPACE: No pleural effusion or pneumothorax. BONE:Within normal limits for the patient's age. OTHER FINDINGS:Normal. IMPRESSION: No acute pulmonary findings. DATA REPOSITORY: RADIATION DOSE DELIVERED:
== END 2022-08-09 11:44 ==
LOC: DI 11:24
PROVIDERS: PCP Family Medicine; Visit Provider Nurse Practitioner Family
DX: R09.89 Other specified symptoms and signs involving the circulatory and respiratory systems (principal); J44.9 Chronic obstructive pulmonary disease, unspecified
CPT/HCPCS: 71046

== ENCOUNTER 2022-09-05 01:05 | Outpatient (CLI) | payer MEDICARE, SELFPAY ==
--- NOTE | 2022-09-05 | DI.MAMMO_ITS ---
Exam(s) MAMMO SCREENING EXAM: MAMMO SCREENING CLINICAL HISTORY: SCREENING MAMMO Z12.31 TECHNIQUE: Bilateral full field digital CC and MLO mammographic images were obtained with 3D tomosyn thesis and utilizing computer aided detection (CAD). COMPARISON: Available for comparison. FINDINGS: Masses/Architectural Distortion: The nodule density in the upper right breast on the MLO view is unch anged. No suspicious masses or areas of architectural distortion are identified. There are bilatera l biopsy clips present. Microcalcifications: No suspicious pleomorphic-type are seen. Skin Thickening/Nipple Retraction: None. IMPRESSION: 1. No significant interval change with no specific features of malignancy noted. 2. Unless there is more urgent need, screening mammography is recommended, as per [employer] guidelines. BI-RADS Category 2 - Benign Findings Breast Density - Category B - Scattered areas of fibroglandular density Breast density category C or D implies that the patient has dense breast tissue. Dense breast tissue is very common and is not abnormal but dense breast tissue can make it harder to find cancer on a ma mmogram. Also, dense breast tissue may increase their breast cancer risk. This information about the result of the mammogram report was provided to the patient to raise their awareness. Use this report when you speak with the patient about their risks for breast cancer, which includes their family hist ory. At that time, you may recommend for more screening tests (Ultrasound or MRI) as they might be us eful based on their risk. A negative radiographic report should not delay biopsy if a dominant or clinically suspicious mass is present. Up to ten percent of cancers are not identified on mammography. A negative report may reinforce clinical impression. Adenosis and dense breasts may obscure an underlying neoplasm. False positive reports average 6 to 10%. Patient will receive a letter notifying them of these results.
== END 2022-09-05 01:25 ==
LOC: DI 01:05
PROVIDERS: PCP Family Medicine; Visit Provider Family Medicine
DX: Z12.31 Encounter for screening mammogram for malignant neoplasm of breast (principal)
CPT/HCPCS: 77063; 77067

== ENCOUNTER 2022-12-12 13:24 | Outpatient (REF) | payer MEDICARE, SELFPAY ==
[2022-12-12 15:33] LABS: HCT 35.8 % (36.0-46.0); HGB 11.7 g/dL (11.2-15.7); MCH 31.5 pg (27.0-33.0); MCHC 32.7 % (32.0-36.0); MCV 97 fL (80-95); MPV 9.6 fL (8.0-11.0); Platelet Count 316 10^3/uL (130-400); RBC 3.71 10^6/uL (3.93-5.22); RDW 12.4 % (11.7-14.6); RDW-SD 42.7 fL; WBC 5.97 10^3/uL (4.4-10.8)
[2022-12-12 15:55] LABS: ALT 21 U/L (14-59); AST 22 U/L (15-37); Albumin 3.6 g/dL (3.4-5.0); Alkaline Phosphatase 58 U/L (46-116); Anion Gap 8.1 mmol/L (3-11); BUN 20 mg/dL (7-18); Bilirubin, Total 0.4 mg/dL (0.2-1.0); CO2 26.9 mmol/L (21.0-32.0); CREATININE 0.9 mg/dL (0.55-1.02); Calcium 8.6 mg/dL (8.5-10.1); Chloride 102 mmol/L (98-107); Estimated GFR 66.67 (mL/min/1.73m2); Glucose 91 mg/dL (74-106); Potassium 4.6 mmol/L (3.5-5.1); Sodium 137 mmol/L (136-145); Total Protein 6.8 g/dL (6.4-8.2)
== END 2022-12-12 13:25 | disposition home or self-care (01) ==
LOC: NCHCN 13:24
PROVIDERS: PCP Family Medicine; Visit Provider Family Medicine
DX: E11.9 Type 2 diabetes mellitus without complications (principal); I10 Essential (primary) hypertension
CPT/HCPCS: 80053; 85027

== ENCOUNTER 2023-02-08 15:14 | Emergency (ER) | payer OTHER, MEDICARE, SELFPAY ==
--- NOTE | 2023-02-08 15:15 | RT.EKG_ITS ---
APPROVED REPORT Exam: Resting ECG Reason for Exam: Syncope Patient Location: E HR:75 bpm ECG Measurements Heart Rate 75 AXIS RI 185 P 50 QRSd 96 QRS 0 QT 405 T 79 QTc 453 Conclusion Sinus rhythm...normal P axis, V-rate 60- 99 Narrow complex normal sinus rhythm at a rate of 75. Left axis deviation no signs of voltage criteria for LVH. Intervals within normal limits. No prior for comparison. No acute injury pattern. T wav e inversion in aVL.
--- NOTE | 2023-02-08 15:16 | ED.GENADUL_ITS ---
Discharge Plan Disposition Patient Disposition: Home Discharge Details Clinical Impression: History of recent fall, Immunization, tetanus-diphtheria, Closed fracture of left ramus of mandible Primary Care Provider: Eriberto Castaneda ED Provider: Ashu Pavon [place] Meds and New Rx's Prescriptions: New chlorhexidine gluconate [Peridex] 0.12 % mouthwash 15 ml mucous membrane BID Qty: 15 0RF oxycodone 5 mg tablet 5 mg PO Q8H PRNQty: 7 0RF Continued Methotrexate (Anti-Rheumatic) 2.5 mg tablets,dose pack 10 mg PO .WEEKLY glipizide 5 mg tablet extended release 24hr 5 mg PO BID metformin [Glucophage] 1,000 mg tablet 2,000 mg PO DAILY Patient Comments: not on pt list ascorbate calcium (vitamin C) 500 mg tablet 500 mg PO DAILY citalopram 10 MG/5 ML solution 40 mg PO HS aspirin [Aspirin Low-Strength] 81 MG tablet,chewable 81 mg PO DAILY vitamin B complex [B-Complex] 1 EACH tablet 1 ea PO DAILY folic acid 1 MG tablet 2 mg PO BID calcium carbonate [Calci-Chew] 500 MG tablet,chewable 500 mg PO DAILY lisinopril 5 MG tablet 10 mg PO DAILY Mag 64 64 MG tablet,delayed release (DR/EC) 64 mg PO BID Qty: 30 0RF insulin glargine [Lantus U-100 Insulin] 100 UNIT/ML solution 25 - 50 unit SQ HS metformin 500 mg tablet extended release 24 hr 2,000 mg PO DAILY Patient Comments: TAKE FOUR TABLETS BY MOUTH ONCE DAILY benzonatate 200 mg capsule 100 mg PO BID Patient Comments: TAKE ONE CAPSULE BY MOUTH THREE TIMES A DAY albuterol sulfate 90 mcg/actuation HFA aerosol inhaler 2 puff INHALATION QID PRN Patient Comments: INHALE TWO PUFFS BY MOUTH FOUR TIMES A DAY NEEDED FOR COUGH, WHEEZE, SHORTNESS OF BREATH Discharge Instructions Additional Instructions: You are seen in the emergency department for your dizziness and fall. Your CAT scan showed no sign of any bleeding in her head but does show that you have a broken jaw. Your blood work showed no sign of a kidney injury. Your urinalysis showed no sign of urinary tract infection. The plastics team at [facility] in [place] will call you for follow-up in the next several days as you will need to have surgery in the next 1 to 2 weeks for your jaw fracture. Please ensure that as we discussed that you stay hydrated at home and urinate at least once every 8 hours while awake. Please return to the emergency department if you cannot eat or drink as result of pain. For your pain please take medications as follows: 1. Take acetaminophen (Tylenol), 1,000 mg (two 500 mg tabs) every 6 hours You are also receiving 7 oxycodone tablets which you should take as needed for additional pain. Please do not drive or use heavy machinery or drink alcohol after taking oxycodone tablets. If you take more than 2 oxycodone tablets you should consider taking a stool softener as this will help prevent constipation. You are also receiving a prescription for a mouthwash which should prevent infection from the stitches inside your mouth. As we discussed the stitches will come out on their own and this is not a problem. You will need to have the stitches from your face removed in 1 week. Stand Alone Forms: Work Release Referrals: Ashu Pavon MD [Emergency Provider] - Sam Nicholson MD [ [facility] STAFF PHYSICIAN] - Discharge Data Discharge Date/Time-TO BE ENTERED AT DEPARTURE: 02/08/23 20:15 HPI General Date/Time Provider Initiated Documentation: 02/08/23 15:16 . HPI Narrative: HPI This is a [id number] 78-year-old female with a history of diabetes on outpatient 81 mg of aspirin but no additional anticoagulation arrived to the emergency department via private vehicle after being seen at a [facility] o[facility] a fall. Patient reports that she was walking down a steep embankment. She said that she transiently became dizzy. She lost her balance and fell. She broke her fall with her right hand and her face. She does say that she felt dizzy just prior to her fall. She cut her left thumb and right long finger. She was able to get up on her own and has been ambulatory subsequently. She did not lose consciousness nor is she having any chest pain or shortness of breath. She does have some right-sided rib pain. She has not taken any medications yet for her pain. She has not attempted to clean her wounds. Exam General: Well-appearing in no acute distress speaking in complete sentences. Head: Normocephalic, atraumatic. Eye: [Pupils equal, round reactive to light.] Extraocular eye movements intact. No conjunctival injection. No scleral icterus. Ear, nose, mouth, throat: Midline, inferior to the vermilion border there is an approximately 1 cm hemostatic laceration. Below the chin there is an approximately 0.5 cm hemostatic laceration superficial. Intraorally on the buccal mucosa of the lower left there is a hemostatic approximately 0.5 cm laceration. Unclear whether or not this laceration is through and through. Normal voice, handling secretions normally.No hemotympanum bilaterally. No septal hematoma. Patient is able to hold the tongue depressor between her teeth and I am not able to remove it. Neck: Trachea midline. No midline cervical spinal tenderness. Cardiovascular: Well-perfused distal extremities. Regular rate and rhythm Respiratory: Nonlabored respiration. Clear lungs bilaterally. Gastrointestinal: Nondistended abdomen. Musculoskeletal: No edema. Moving all 4 extremities spontaneously. On the dorsal aspect of the right long finger between the MCP and PIP joints there is a hemostatic approximately 5 mm superficial laceration. Sensation and motor function intact in the right hand across the radial, median, and ulnar nerve distributions. Left thumb w/superficial 0.5cm abrasion. Skin: Normal for age and race, grossly normal temperature and turgor. No acute rash. Neurologic: Alert and appropriate, no apparent acute deficits. GCS 15. Psychiatric: Mood and manner are appropriate. Grooming and personal hygiene are appropriate. MDM This is an overall well-appearing normothermic and not hypotensive nor tachycardic 78-year-old female with dizziness that preceded her fall concerning for presyncope. Will obtain ECG & troponin given history of anemia and aspirin use will obtain CBC though patient denies black bloody stools without GI bleed. Patient is neurologically intact with no nystagmus so my suspicion is exceedingly low for CVA so I did not feel that patient requires an MRI nor is she had tPA candidate. No pain out of proportion to suggest necrotizing soft tissue infection. No dysuria no frequency so doubt UTI. I considered PE however the patient is not short of breath nor hypoxic nor tachycardic so do not feel that patient requires D-dimer testing. No preceding chest pain though given right-sided chest soreness following her fall will obtain a chest x-ray. Based on tongue depressor test my suspicion is low for mandibular fracture however given fall with facial trauma will obtain CT with facial bones. Nonetheless she fails Filipino CT head and given signs of facial trauma will complete CT head with maxillofacial cuts. She does have 2 lacerations on her chin which will need to be assessed after irrigation. We will update her tetanus status. Will reassess following labs chest x-ray ECG. No neck pain or distracting injuries so negative based on Nexus criteria. Patient does have good range of motion in her right hand so my suspicion for underlying bony abnormality is low however given trauma will obtain x-rays of the right long finger. We will update patient's tetanus status. 4:45 PM On inspection patient did have a through and through lip laceration. I have asked health community engagement manager Becky to have the patient seen in 1 week by ENT given her through and through lip laceration. 4:56 PM Troponin negative. Basic metabolic panel showing no TYRA. Mild hyperglycemia. No anion gap. Not consistent with DKA. CBC with mild leukocytosis no anemia. No thrombocytopenia. Trace blood in urinalysis. Nitrite negative. On microscopy 0-2 red cells cells per high-powered field. 5:53 PM Chest x-ray read as negative. No signs of any acute finger fractures. We will repeat vital signs and anticipate discharge. 6:09 PM Spoke with radiology as patient was found to have a comminuted closed left mandibular ramus fracture. Will page ENT for follow-up and discussion. We will treat with Precedex rinse and spit. Will advise on sinus precautions. 6:15 PM I spoke with Dr. Nicholson from ENT who reported that unfortunately we could not handle a mandibular fracture locally. He advised touching base with face trauma at [facility] or [facility]. I have asked health community engagement manager Becky to call face trauma at [facility]. 7:15 PM I spoke to Dr. Oanh Bills from plastics at [facility] who said that she would speak with her attending after reviewing the films. Recommendation will be for patient to be seen in 1 to 2 weeks for outpatient surgery with plastics at [facility]. We will ensure patient can tolerate a soft diet and well make sure she can stay hydrated. 7:56 PM Patient was able to tolerate p.o. in the ED. Her vitals were significant for persistent hypertension which is likely secondary to pain. We will give her one 200 mg ibuprofen tablets in addition to oxycodone as her is here to drive her home. I provided her with a work note. Will advise soft liquid diet and to be sure she stays hydrated. I sent her home with several oxycodone tablets and I will write a prescription for several additional oxycodone tablets and advised [id number] acetaminophen and ice. I counseled patient on a soft diet. She had no records in the prescription drug monitoring website. I sent her with a work note for 2 days off and I advised her to return to the emergency department if she could not stay hydrated or keep down food. I also advised her that [facility] would call her for follow-up in the next several days. I passed along patient's phone number to plastics at [facility]. I also advised the patient consider laxatives if she requires multiple doses of oxycodone to prevent constipation. [place] Head CT Criteria Major Criteria GCS < 15 : [No] Open or depressed skull Fx: [No] Sign of Basilar Skull Fx: [No] > 2 Episodes Vomiting: [No] Anticoagulation: [No] Age > 65: Yes Minor Criteria Retrograde Amnesia >30min: [No] Dangerous Mechanism: [No] Per Nexus criteria, cervical CT not obtained. The patient had no c-spine midline tenderness, no evidence of intoxication, was AAOx3, had no focal neurological deficits, and no painful distracting injuries. Chronic conditions affecting the care of the patient: Anemia diabetes History obtained from an outside historian: N/A External record review: [facility] EMR showing type 2 diabetes [Diagnostic interpretations performed by me:] [Per my independent interpretation chest x-ray shows:] No acute cardiopulmonary process [Per my independent interpretation EKG shows:] Narrow complex normal sinus rhythm at a rate of 75. Left axis deviation no signs of voltage criteria for LVH. Intervals within normal limits. No prior for comparison. No acute injury pattern. T wave inversion in aVL. Medications: Acetaminophen for analgesia Social determinants of health affecting disposition: N/A Management discussed with: Radiology & ENT Dr. Nicholson & plastics at [facility] Treatment/interventions considered: N/A Response to therapies provided: Improved pain following acetaminophen Related Data Home Medications Medication Instructions Recorded Confirmed Aspirin Low-Strength 81 mg 81 mg PO DAILY 08/20/12 02/08/23 chewable tablet (aspirin) B-Complex (vitamin B complex) 1 ea PO DAILY 08/20/12 02/08/23 Calci-Chew 500 mg calcium (1,250 500 mg PO DAILY 08/20/12 02/08/23 mg) tablet (calcium carbonate) citalopram 10 mg/5 mL oral solution 40 mg PO HS 08/20/12 02/08/23 folic acid 1 mg tablet 2 mg PO BID 08/20/12 02/08/23 lisinopril 5 mg tablet 10 mg PO DAILY 08/20/12 02/08/23 magnesium chloride 64 mg 64 mg PO BID ##30 05/01/13 02/08/23 (magnesium chloride) tablet,delayed release (Mag 64) insulin glargine 100 unit/mL 25 - 50 unit SQ HS 01/03/16 02/08/23 subcutaneous solution (Lantus U-100 Insulin) Glucophage 1,000 mg tablet 2,000 mg PO DAILY 07/21/22 (metformin) Methotrexate (Anti-Rheumatic) 2.5 10 mg PO .WEEKLY 07/21/22 02/08/23 mg tablets in a dose pack (methotrexate sodium) ascorbate calcium (vitamin C) 500 500 mg PO DAILY 07/21/22 02/08/23 mg tablet glipizide 5 mg tablet, extended 5 mg PO BID 07/21/22 02/08/23 release 24 hr albuterol sulfate 90 mcg/actuation 2 puff inhalation QID PRN 02/08/23 02/08/23 aerosol inhaler benzonatate 200 mg capsule 100 mg PO BID 02/08/23 02/08/23 chlorhexidine gluconate 0.12 % 15 ml mucous membrane BID #15 mL 02/08/23 mouthwash (Peridex) metformin 500 mg tablet,extended 2,000 mg PO DAILY 02/08/23 02/08/23 release 24 hr oxycodone 5 mg tablet 5 mg PO Q8H PRN #7 tabs 02/08/23 Previous Rx's Medication Instructions Recorded magnesium chloride 64 mg 64 mg PO BID ##30 05/01/13 (magnesium chloride) tablet,delayed release (Mag 64) chlorhexidine gluconate 0.12 % 15 ml mucous membrane BID #15 mL 02/08/23 mouthwash (Peridex) oxycodone 5 mg tablet 5 mg PO Q8H PRN #7 tabs 02/08/23 Allergies Allergy/AdvReac Type Severity Reaction Status Date / Time Sulfa (Sulfonamide Allergy Intermediate Nausea Unverified 02/08/23 17:51 Antibiotics) General PETEY: 4 PFSH All Active Problems (Updated 02/08/23 @ 18:16 by Ashu Pavon MD) History of recent fall (Acute) Immunization, tetanus-diphtheria (Acute) Closed fracture of left ramus of mandible (Acute) Anemia (Chronic) Hypertension (Chronic) Diabetes (Chronic) Uveitis (Acute) Nail dystrophy (Acute) Plantar fasciitis (Acute) Medical History (Updated 02/08/23 @ 18:16 by Ashu Pavon MD) Depression Insomnia Low back pain acute, noted 02/04/22 Paresthesia of arm R ulnar distribution; noted 01/31/22, Dr. Castaneda Social History Smoking/Tobacco Use Status: Current every day Smoking risk assessment performed?: Yes Drug use: Never Do you feel safe at home: Yes Do you feel safe in your relationship?: Yes Procedures Laceration Laceration 1: Site: lip ( through and through lip laceration approximately 2 cm on the buccal mucosa & 1 cm on the external surface) Description: linear (Does not involve vermilion border) Depth: [id number] Local Anesthetic: other anesthetic (LET) Pre-repair: wound explored and irrigated extensively Skin layer closed with: nylon Size (cm): 5-0 (Prolene) Number of sutures: 1 Technique: simple, interrupted Muscle layer closed with: vicryl Size: 5-0 Number of sutures: 1 Technique: simple, interrupted Laceration 2: Site: lip Size (cm): 2 Description: linear Pre-repair: wound explored and irrigated extensively Subcutaneous layer closed with: vicryl and other (Intraoral laceration closed with 2, 5-0 Vicryl sutures) Size: 5-0 Technique: simple, interrupted Laceration 3: Site: face (10) Description: linear Depth: simple, single layer Local Anesthetic: other anesthetic (LET) Pre-repair: wound explored and irrigated extensively Skin layer closed with: nylon Size (cm): 5-0 (Prolene) Number of sutures: 2 Technique: simple, interrupted Laceration 4: Site: hand Side (If applicable): right Size (cm): 1 Description: linear Depth: simple, single layer Local Anesthetic: Lidocaine 1% (Without epinephrine) Amount of anesthesia used (mL): 3 Pre-repair: wound explored, irrigated extensively and deep structures intact Skin layer closed with: nylon Size (cm): 5-0 (Prolene) Number of sutures: 1
[2023-02-08 15:18] VITALS: BP 197/79; PULSE 73; RESP 18; TEMP 36.7; O2SAT 98
--- NOTE | 2023-02-08 15:30 | DI.RAD_ITS ---
Exam(s) XR CHEST 2V PA LATERAL EXAM: XR CHEST 2V PA LATERAL CLINICAL HISTORY: History of fall. TECHNIQUE: 2D digital imaging was performed. COMPARISON: CR XR CHEST 2V PA LATERAL from 08/09/2022 FINDINGS: 2 views: Heart size is normal. The mediastinum is not widened. Lungs are clear. No infiltrates nor pleural effusions. IMPRESSION: No acute pulmonary findings. DATA REPOSITORY: RADIATION DOSE DELIVERED:
--- NOTE | 2023-02-08 15:34 | DI.CT_ITS ---
Exam(s) CT HEAD FACIAL WO EXAM: CT HEAD FACIAL WO CLINICAL HISTORY: Chin lacerations left-sided jaw pain. TECHNIQUE: Imaging Protocol: Axial computed tomography images with coronal and sagittal reformatted images were created and reviewed COMPARISON: No exams were available for comparison FINDINGS: BRAIN: There are no skull fractures nor fluid in the visualized paranasal sinuses. There is no evidence of intracranial hemorrhage, mass effect, or shift of midline structures. There are no extra-axial fluid collections. The ventricles are not enlarged or shifted and there is no blo od within the ventricular system nor within the basal cisterns. MAXILLOFACIAL CT SCAN: There is a comminuted/displaced fracture of the ramus of the left side of the mandible extending up t o involving the and neck with dislocation of the head of the mandible from the TM joint. The coronoi d process appears intact. The opposite-right side of the mandible and right TMJ joints are intact. No obvious skull base fracture. Zygomatic arches are intact. The pterygoid plates are intact. Para nasal sinuses and nasal bones are intact. Orbits are intact. Airways intact. IMPRESSION: No acute intracranial findings on this noninfused CT scan of the brain. There is a displaced comminuted fracture of the left side of the mandible involving the ramus and nec k and with dislocation of the head of the left side of the mandible from the TMJ joint fossa. RADIATION DOSE DELIVERED: 1,195.39mGy.cm Total DLP DATA REPOSITORY: All CT scans at this facility are submitted to the National Radiology Data Registry (NRDR) Dose Index Registry (DIR) with the [employer] ([employer]). RADIATION OPTIMIZATION: All CT scans at this facility use at least one of these dose optimization te chniques: automated exposure control; mA and/or kV adjustment per patient size (includes targeted exa ms where dose is matched to clinical indication); or iterative reconstruction.
--- NOTE | 2023-02-08 15:34 | DI.RAD_ITS ---
Exam(s) XR FINGER RT MIDDLE EXAM: XR FINGER RT MIDDLE CLINICAL HISTORY: Right finger pain. TECHNIQUE: 2D digital imaging was performed. COMPARISON: No exams were available for comparison FINDINGS: 3 views There is no evidence of acute fracture nor dislocation nor prominent degenerative changes in the elizabeth culations of the 3rd-middle finger. On the lateral view the noted bony excrescence off the palm are aspect of the midshaft of the middle phalanx. This has benign appearance and is unrelated to acute t rauma. IMPRESSION: As above but no fracture evident. DATA REPOSITORY: RADIATION DOSE DELIVERED:
[2023-02-08] MEDS: Lidocaine/Epinephri/Tetracaine Topical Gel 3 ML TP (16:04)
[2023-02-08 16:15] LABS: Abs Immature Grans 0.05 10^3/uL (0.0-0.06); Absolute Basophil Count 0.06 10^3/uL (0.0-0.2); Absolute Eosinophil Count 0.13 10^3/uL (0.0-0.7); Absolute Lymphocyte Count 1.59 10^3/uL (1.2-3.4); Absolute Monocyte Count 1.06 10^3/uL (0.1-0.8); Basophils % 0.4; Eosinophils % 0.9; HCT 36.2 % (36.0-46.0); HGB 12.1 g/dL (11.2-15.7); Immature Grans % 0.4; Lymphocytes % 11.4; MCH 31.3 pg (27.0-33.0); MCHC 33.4 % (32.0-36.0); MCV 94 fL (80-95); Monocytes % 7.6; Neutrophils % 79.3; Platelet Count 336 10^3/uL (130-400); RBC 3.87 10^6/uL (3.93-5.22); RDW 12.4 % (11.7-14.6); RDW-SD 42.5 fL; WBC 13.99 10^3/uL (4.4-10.8)
[2023-02-08 16:15] LABS: Bilirubin Negative (Negative); Blood Trace-intact (Negative); Clarity Clear (Clear); Glucose Negative (Negative); Ketones Negative (Negative); Leukocyte Esterase Negative (Negative); Nitrite Negative (Negative); Urobilinogen 0.2 mg/dL (Up to 0.2); pH 6.5 (5-8)
[2023-02-08 16:16] LABS: Absolute Neutrophil Count 11.09 10^3/uL (1.2-6.7)
[2023-02-08] MEDS: Acetaminophen 500 MG TAB 1000 MG PO (16:17)
[2023-02-08 16:23] LABS: Bacteria Rare HPF (Negative); C & S Indicated? No; Casts Negative LPF (Negative); Crystals Negative HPF (Negative); Epithelial Cells Rare HPF (Negative); Mucus Negative (Negative); RBC 0-2 HPF (0-2)
[2023-02-08 16:33] LABS: Anion Gap 8.3 mmol/L (3-11); BUN 19 mg/dL (7-18); CO2 28.7 mmol/L (21.0-32.0); CREATININE 1.1 mg/dL (0.55-1.02); Calcium 8.9 mg/dL (8.5-10.1); Chloride 101 mmol/L (98-107); Estimated GFR 52.08 (mL/min/1.73m2); Glucose 149 mg/dL (74-106); Potassium 4.3 mmol/L (3.5-5.1); Sodium 138 mmol/L (136-145); Troponin I < 50 ng/L (<or=60)
--- NOTE | 2023-02-08 17:06 | NUR.NOTE ---
Referral Faxed to ENT due to a thru and thru lip laceration. Nursing Note:
[2023-02-08 18:00] VITALS: BP 152/72; PULSE 70; TEMP 36.7; O2SAT 97
[2023-02-08 19:51] VITALS: BP 188/72; PULSE 69; TEMP 36.5; O2SAT 98
[2023-02-08] MEDS: oxyCODONE 5 MG TAB PO (20:05)
[2023-02-08] MEDS: Ibuprofen 200 MG TAB PO (20:05)
[2023-02-08 20:18] VITALS: BP 188/72; PULSE 69; RESP 18; TEMP 36.5; O2SAT 98
== END 2023-02-08 20:15 | disposition home or self-care (01) ==
PROVIDERS: Emergency Provider Emergency Medicine; PCP Family Medicine
DX: R55 Syncope and collapse; S01.81XA Laceration without foreign body of other part of head, initial encounter; W19.XXXA Unspecified fall, initial encounter; Z23 Encounter for immunization; S02.642A Fracture of ramus of left mandible, initial encounter for closed fracture; E11.65 Type 2 diabetes mellitus with hyperglycemia; D64.9 Anemia, unspecified; S01.511A Laceration without foreign body of lip, initial encounter; Z79.82 Long term (current) use of aspirin; I10 Essential (primary) hypertension; Z79.4 Long term (current) use of insulin; Z79.899 Other long term (current) drug therapy
CPT/HCPCS: 12001; 12011; 12051; 36415; 40650; 80048; 90471; 93005; 99285; 70450; 70486; 71046; 73140; 81003; 81015; 84484; 85025; 93010; 99284

== ENCOUNTER 2023-02-10 18:47 | Emergency (ER) | payer OTHER, MEDICARE, SELFPAY ==
[2023-02-10 19:04] VITALS: BP 153/55; PULSE 63; RESP 18; TEMP 36.9; O2SAT 97
[2023-02-10] MEDS: HYDROmorphone 2 MG TAB PO (21:14)
--- NOTE | 2023-02-10 21:16 | ED.GENADUL_ITS ---
Discharge Plan Disposition Patient Disposition: Home Condition: Good Discharge Details Clinical Impression: Closed fracture of left ramus of mandible Primary Care Provider: Eriberto Castaneda ED Provider: Jarrett Hanley Meds and New Rx's Prescriptions: New hydromorphone 2 mg tablet 2 mg PO Q8H PRN (Reason: pain) Qty: 14 0RF Continued Methotrexate (Anti-Rheumatic) 2.5 mg tablets,dose pack 10 mg PO .WEEKLY glipizide 5 mg tablet extended release 24hr 5 mg PO BID metformin [Glucophage] 1,000 mg tablet 2,000 mg PO DAILY Patient Comments: not on pt list ascorbate calcium (vitamin C) 500 mg tablet 500 mg PO DAILY citalopram 10 MG/5 ML solution 40 mg PO HS aspirin [Aspirin Low-Strength] 81 MG tablet,chewable 81 mg PO DAILY vitamin B complex [B-Complex] 1 EACH tablet 1 ea PO DAILY folic acid 1 MG tablet 2 mg PO BID calcium carbonate [Calci-Chew] 500 MG tablet,chewable 500 mg PO DAILY lisinopril 5 MG tablet 10 mg PO DAILY Mag 64 64 MG tablet,delayed release (DR/EC) 64 mg PO BID Qty: 30 0RF insulin glargine [Lantus U-100 Insulin] 100 UNIT/ML solution 25 - 50 unit SQ HS metformin 500 mg tablet extended release 24 hr 2,000 mg PO DAILY Patient Comments: TAKE FOUR TABLETS BY MOUTH ONCE DAILY benzonatate 200 mg capsule 100 mg PO BID Patient Comments: TAKE ONE CAPSULE BY MOUTH THREE TIMES A DAY albuterol sulfate 90 mcg/actuation HFA aerosol inhaler 2 puff INHALATION QID PRN Patient Comments: INHALE TWO PUFFS BY MOUTH FOUR TIMES A DAY NEEDED FOR COUGH, WHEEZE, SHORTNESS OF BREATH chlorhexidine gluconate [Peridex] 0.12 % mouthwash 15 ml mucous membrane BID Qty: 15 0RF Discontinued oxycodone 5 mg tablet 5 mg PO Q8H PRNQty: 7 0RF Discharge Instructions Instructions: Opioid Safety (ED) Additional Instructions: You were seen for uncontrolled pain related to your jaw fracture. You had better pain control with hydromorphone. A new prescription for this medication has been sent to your pharmacy. You should discontinue the oxycodone and not take it. You may take acetaminophen in addition to hydromorphone. You should not use the hydromorphone any more frequently or at a higher dose than prescribed given its potency. Be sure to drink plenty of fluids to stay hydrated. Be sure to use stool softener and/or MiraLAX so you do not become constipated. Follow-up at [facility] for surgery next week as planned. Return to ED for fever, increasing pain or redness, neurologic change, other concerns. Medical Decision Making Patient with left mandibular fracture pending surgery at [facility] next week. Oxycodone is not managing her pain adequately. No evidence of infection. I did review CAT scan read. She has a displaced comminuted fracture of the mandible with dislocation of the head of the mandible from the TMJ. Will dose with oral Dilaudid to see if any better pain control. Patient much improved in regards to pain and is much more comfortable. We will discontinue oxycodone and provide prescription for Dilaudid pending surgery at [facility]. She should continue her other medications including the mouth rinse prescribed due to the lip laceration. Return precautions provided. HPI General Mode of arrival: ambulatory . Date/Time Provider Initiated Documentation: 02/10/23 20:34 . Limitations to Documentation: no limitations . Information obtained by: patient . HPI Narrative: Patient presents to ED with continued pain related to left mandibular fracture from a fall on the . Patient will be going to [facility] on of next week for surgery. She was discharged home on oxycodone which has not been controlling her pain at all. She took 2 oxycodone this evening and continues to have significant pain. Denies any new injury. Denies fever. Has been unable to get comfortable or sleep since the fall because of the pain. Related Data Home Medications Medication Instructions Recorded Confirmed Aspirin Low-Strength 81 mg 81 mg PO DAILY 08/20/12 02/08/23 chewable tablet (aspirin) B-Complex (vitamin B complex) 1 ea PO DAILY 08/20/12 02/08/23 Calci-Chew 500 mg calcium (1,250 500 mg PO DAILY 08/20/12 02/08/23 mg) tablet (calcium carbonate) citalopram 10 mg/5 mL oral solution 40 mg PO HS 08/20/12 02/08/23 folic acid 1 mg tablet 2 mg PO BID 08/20/12 02/08/23 lisinopril 5 mg tablet 10 mg PO DAILY 08/20/12 02/08/23 magnesium chloride 64 mg 64 mg PO BID ##30 05/01/13 02/08/23 (magnesium chloride) tablet,delayed release (Mag 64) insulin glargine 100 unit/mL 25 - 50 unit SQ HS 01/03/16 02/08/23 subcutaneous solution (Lantus U-100 Insulin) Glucophage 1,000 mg tablet 2,000 mg PO DAILY 07/21/22 (metformin) Methotrexate (Anti-Rheumatic) 2.5 10 mg PO .WEEKLY 07/21/22 02/08/23 mg tablets in a dose pack (methotrexate sodium) ascorbate calcium (vitamin C) 500 500 mg PO DAILY 07/21/22 02/08/23 mg tablet glipizide 5 mg tablet, extended 5 mg PO BID 07/21/22 02/08/23 release 24 hr albuterol sulfate 90 mcg/actuation 2 puff inhalation QID PRN 02/08/23 02/08/23 aerosol inhaler benzonatate 200 mg capsule 100 mg PO BID 02/08/23 02/08/23 chlorhexidine gluconate 0.12 % 15 ml mucous membrane BID #15 mL 02/08/23 mouthwash (Peridex) metformin 500 mg tablet,extended 2,000 mg PO DAILY 02/08/23 02/08/23 release 24 hr hydromorphone 2 mg tablet 2 mg PO Q8H PRN pain #14 tabs 02/10/23 Previous Rx's Medication Instructions Recorded magnesium chloride 64 mg 64 mg PO BID ##30 05/01/13 (magnesium chloride) tablet,delayed release (Mag 64) chlorhexidine gluconate 0.12 % 15 ml mucous membrane BID #15 mL 02/08/23 mouthwash (Peridex) hydromorphone 2 mg tablet 2 mg PO Q8H PRN pain #14 tabs 02/10/23 Allergies Allergy/AdvReac Type Severity Reaction Status Date / Time Sulfa (Sulfonamide Allergy Intermediate Nausea Unverified 02/08/23 17:51 Antibiotics) General Stated Complaint: Orthopedic PETEY: 3 Review of Systems Narrative: Per HPI PFSH All Active Problems (Updated 02/10/23 @ 21:46 by Jarrett Hanley MD) History of recent fall (Acute) Immunization, tetanus-diphtheria (Acute) Closed fracture of left ramus of mandible (Acute) Anemia (Chronic) Hypertension (Chronic) Diabetes (Chronic) Uveitis (Acute) Nail dystrophy (Acute) Plantar fasciitis (Acute) Medical History (Updated 02/10/23 @ 21:46 by Jarrett Hanley MD) Depression Insomnia Low back pain acute, noted 02/04/22 Paresthesia of arm R ulnar distribution; noted 01/31/22, Dr. Castaneda Social History Smoking/Tobacco Use Status: Current every day Smoking risk assessment performed?: Yes Alcohol Intake: never Drug use: Never Do you feel safe at home: Yes Do you feel safe in your relationship?: Yes Exam Narrative Exam Narrative: Const: WDWN elderly female in NAD. HEENT: Face with swelling and tenderness along the left mandible. No erythema. Lower lip with sutures in tact, no sign of drainage or redness. Neck: Supple. Trachea midline. Lungs: Normal respiratory effort. Neuro: A+O x 3. Normal speech, mentation, gait. Cranial nerves II - XII grossly intact. No gross motor or sensory deficit. Ext: No C/C/E. Skin: Warm and dry without rash. Course Vital Signs Vital signs: Vital Signs Temperature 98.5 F 02/10/23 19:04 Pulse 63 02/10/23 19:04 Respiratory Rate 18 02/10/23 19:04 Blood Pressure 153/55 H 02/10/23 19:04 Pulse Oximetry 97 02/10/23 19:04 Temperature 98.5 F 02/10/23 19:04 Temperature Source Skin 02/10/23 19:04 Pulse 63 02/10/23 19:04 Respiratory Rate 18 02/10/23 19:04 Respiratory Effort Normal 02/10/23 19:07 Blood Pressure 153/55 H 02/10/23 19:04 Blood Pressure Position Sitting 02/10/23 19:04 Pulse Oximetry 97 02/10/23 19:04 Oxygen Delivery Method Room Air 02/10/23 19:04 Oxygen Flow Rate 0 02/10/23 19:04
[2023-02-10 21:59] VITALS: PULSE 74; RESP 14; O2SAT 99
== END 2023-02-10 21:58 | disposition home or self-care (01) ==
PROVIDERS: Emergency Provider Emergency Medicine; PCP Family Medicine
DX: S02.642A Fracture of ramus of left mandible, initial encounter for closed fracture (principal); X58.XXXA Exposure to other specified factors, initial encounter
CPT/HCPCS: 99283; 99284

== ENCOUNTER 2023-02-24 10:38 | Emergency (ER) | payer OTHER, MEDICARE, SELFPAY ==
[2023-02-24 10:40] VITALS: BP 153/59; PULSE 69; RESP 16; TEMP 36.8; O2SAT 97
[2023-02-24 11:28] VITALS: RESP 18
[2023-02-24 12:16] LABS: Abs Immature Grans 0.04 10^3/uL (0.0-0.06); Absolute Basophil Count 0.05 10^3/uL (0.0-0.2); Absolute Lymphocyte Count 1.03 10^3/uL (1.2-3.4); Absolute Monocyte Count 1.14 10^3/uL (0.1-0.8); Basophils % 0.4; Eosinophils % 0.4; HCT 36.3 % (36.0-46.0); HGB 11.9 g/dL (11.2-15.7); Immature Grans % 0.4; Lymphocytes % 9.1; MCH 30.8 pg (27.0-33.0); MCHC 32.8 % (32.0-36.0); MCV 94 fL (80-95); Monocytes % 10.1; Neutrophils % 79.6; Platelet Count 390 10^3/uL (130-400); RBC 3.86 10^6/uL (3.93-5.22); RDW 12.4 % (11.7-14.6); RDW-SD 42.7 fL; WBC 11.32 10^3/uL (4.4-10.8)
[2023-02-24 12:18] LABS: Absolute Eosinophil Count 0.05 10^3/uL (0.0-0.7); Absolute Neutrophil Count 9.01 10^3/uL (1.2-6.7)
[2023-02-24] MEDS: Lactated Ringers 500 ML IV (12:23)
[2023-02-24 12:44] LABS: ALT 38 U/L (14-59); AST 31 U/L (15-37); Albumin 3.3 g/dL (3.4-5.0); Alkaline Phosphatase 102 U/L (46-116); Anion Gap 9.9 mmol/L (3-11); BUN 12 mg/dL (7-18); Bilirubin, Total 0.7 mg/dL (0.2-1.0); CO2 26.1 mmol/L (21.0-32.0); CREATININE 0.9 mg/dL (0.55-1.02); Calcium 9.2 mg/dL (8.5-10.1); Chloride 97 mmol/L (98-107); Estimated GFR 66.26 (mL/min/1.73m2); Glucose 205 mg/dL (74-106); Potassium 4.2 mmol/L (3.5-5.1); Sodium 133 mmol/L (136-145); Total Protein 8.3 g/dL (6.4-8.2); Troponin I < 50 ng/L (<or=60)
--- NOTE | 2023-02-24 13:45 | DI.CT_ITS ---
Exam(s) CT PELVIC WO EXAM: CT PELVIC WO CLINICAL HISTORY: pain rt hip/pelvis. TECHNIQUE: Imaging Protocol: Axial computed tomography images with coronal and sagittal reformatted images were created and reviewed. CONTRAST MATERIAL: Oral: / no COMPARISON: CR LUMBAR SPINE COMPLETE from 05/14/2015 FINDINGS: Bladder: Symmetric distention, no gross wall thickening. Bowel: No obstruction or bowel wall thickening. Sigmoid diverticulosis. Large quantity of stool in the sigmoid. Peritoneal cavity: No ascites, collection or mesenteric inflammatory response. Reproductive: Unremarkable. Bones: No fracture. Degenerative changes lower lumbar spine. SI joints and pubic symphysis unremar kable. Hip joints appear intact. Mild acetabular spurring. Soft tissues: Vascular: Severe atherosclerotic changes of the lower abdominal aorta. Slight dilatation of the dist al aorta above the bifurcation to 2.8 cm. Severe narrowing at the origin of the common iliac arterie s. No evidence of hematoma or muscle edema. No stranding in the subcutaneous fat. IMPRESSION: No acute abnormality. RADIATION DOSE DELIVERED: Total DLP DATA REPOSITORY: All CT scans at this facility are submitted to the National Radiology Data Registry (NRDR) Dose Index Registry (DIR) with the [employer] ([employer]). RADIATION OPTIMIZATION: All CT scans at this facility use at least one of these dose optimization te chniques: automated exposure control; mA and/or kV adjustment per patient size (includes targeted exa ms where dose is matched to clinical indication); or iterative reconstruction.
--- NOTE | 2023-02-24 15:55 | ED.GENADUL_ITS ---
Discharge Plan Disposition Patient Disposition: Home Condition: Stable Discharge Details Clinical Impression: Acute pain of right hip, Jaw pain Primary Care Provider: Eriberto Castaneda ED Provider: Kem Maldonado Home Meds and New Rx's Prescriptions: New cephalexin 250 mg/5 mL suspension for reconstitution 500 mg PO QID Qty: 300 0RF Continued Methotrexate (Anti-Rheumatic) 2.5 mg tablets,dose pack 10 mg PO .WEEKLY glipizide 5 mg tablet extended release 24hr 5 mg PO BID metformin [Glucophage] 1,000 mg tablet 2,000 mg PO DAILY Patient Comments: not on pt list ascorbate calcium (vitamin C) 500 mg tablet 500 mg PO DAILY citalopram 10 MG/5 ML solution 40 mg PO HS aspirin [Aspirin Low-Strength] 81 MG tablet,chewable 81 mg PO DAILY vitamin B complex [B-Complex] 1 EACH tablet 1 ea PO DAILY folic acid 1 MG tablet 2 mg PO BID calcium carbonate [Calci-Chew] 500 MG tablet,chewable 500 mg PO DAILY lisinopril 5 MG tablet 10 mg PO DAILY Mag 64 64 MG tablet,delayed release (DR/EC) 64 mg PO BID Qty: 30 0RF insulin glargine [Lantus U-100 Insulin] 100 UNIT/ML solution 25 - 50 unit SQ HS hydromorphone 2 mg tablet 2 mg PO Q8H PRN (Reason: pain) Qty: 14 0RF metformin 500 mg tablet extended release 24 hr 2,000 mg PO DAILY Patient Comments: TAKE FOUR TABLETS BY MOUTH ONCE DAILY chlorhexidine gluconate [Peridex] 0.12 % mouthwash 15 ml mucous membrane BID Qty: 15 0RF Discharge Instructions Instructions: Cellulitis (ED), Arthralgia (ED) Additional Instructions: Please take antibiotic as prescribed. Take liquid Tylenol and liquid ibuprofen. Dose according to label. Please follow-up with your primary care physician. Please contact your primary care physician to arrange follow-up. Return to the ER immediately for any worsening or new concerning symptoms. Referrals: Eriberto Castaneda MD [Primary Care Provider] - Discharge Data Discharge Date/Time-TO BE ENTERED AT DEPARTURE: 02/24/23 16:56 Medical Decision Making 78-year-old female here with right hip pain that started yesterday, did have a fall a couple weeks ago that resulted in mandible fracture. Patient is tender to her lateral and posterior lateral hip. Limited range of motion of rt hip and difficulty cooperating with exam. Acetaminophen IV was given for discomfort. CT of the abdomen pelvis was obtained to assess for acute fracture and interpreted by radiology: No acute abnormality, see findings below Regarding postoperative wound of her mandible, there is mild erythema and she has persistent pain. I will cover with course of Keflex. I did contact the patient's PCP office who noted she was seen in the office on the nin and was instructed that she should take her medications as prescribed and that she should crush her tablets. I did suggest the patient might benefit from home health PT and nursing given difficulty taking her medications and difficulty with ADLs while on opioid analgesic and with significant pain. They will arrange for home health services. Imaging Data Radiologic Study: Imaging: CT Scan Radiologist's impression: FINDINGS: Bladder: Symmetric distention, no gross wall thickening. Bowel: No obstruction or bowel wall thickening. Sigmoid diverticulosis. Large quantity of stool in the sigmoid. Peritoneal cavity: No ascites, collection or mesenteric inflammatory response. Reproductive: Unremarkable. Bones: No fracture. Degenerative changes lower lumbar spine. SI joints and pubic symphysis unremarkable. Hip joints appear intact. Mild acetabular spurring. Soft tissues: Vascular: Severe atherosclerotic changes of the lower abdominal aorta. Slight dilatation of the distal aorta above the bifurcation to 2.8 cm. Severe narrowing at the origin of the common iliac arteries. No evidence of hematoma or muscle edema. No stranding in the subcutaneous fat. IMPRESSION: No acute abnormality. Lab Data Lab results reviewed: Yes I reviewed the patient's lab results. Labs: Laboratory Tests Range/Units 02/24/23 12:12 WBC (4.4-10.8) 10^3/uL 11.32 H RBC (3.93-5.22) 10^6/uL 3.86 L Hgb (11.2-15.7) g/dL 11.9 Hct (36.0-46.0) % 36.3 MCV (80-95) fL 94 MCH (27.0-33.0) pg 30.8 MCHC (32.0-36.0) % 32.8 RDW (11.7-14.6) % 12.4 Plt Count (130-400) 10^3/uL 390 MPV (8.0-11.0) fL 9.0 Immature Gran % 0.4 Neutrophils % 79.6 Lymphocytes % 9.1 Monocytes % 10.1 Eosinophils % 0.4 Basophils % 0.4 Nucleated RBC % (0.0-0.3) % 0.0 Absolute Neutrophils (1.2-6.7) 10^3/uL 9.01 H Absolute Lymphocytes (1.2-3.4) 10^3/uL 1.03 L Absolute Monocytes (0.1-0.8) 10^3/uL 1.14 H Absolute Eosinophils (0.0-0.7) 10^3/uL 0.05 Absolute Basophils (0.0-0.2) 10^3/uL 0.05 Sodium (136-145) mmol/L 133 L Potassium (3.5-5.1) mmol/L 4.2 Chloride (98-107) mmol/L 97 L Carbon Dioxide (21.0-32.0) mmol/L 26.1 Anion Gap (3-11) mmol/L 9.9 BUN (7-18) mg/dL 12 Creatinine (0.55-1.02) mg/dL 0.9 Est GFR (CKD-EPI 2020) (mL/min/1.73m2) 66.26 Glucose (74-106) mg/dL 205 H Calcium (8.5-10.1) mg/dL 9.2 Total Bilirubin (0.2-1.0) mg/dL 0.7 AST (15-37) U/L 31 ALT (14-59) U/L 38 Alkaline Phosphatase (46-116) U/L 102 Troponin I (<or=60) ng/L < 50 Total Protein (6.4-8.2) g/dL 8.3 H Albumin (3.4-5.0) g/dL 3.3 L HPI General Date/Time Provider Initiated Documentation: 02/24/23 11:47 . Limitations to Documentation: no limitations . Information obtained by: patient . HPI Narrative: 78-year-old female presents with chief complaint of hip pain. Patient notes fall on 02/08 resulting in fractured mandible. She subsequently had [place] with [place] [facility] now notes pain in her right hip that started yesterday and has persisted. Pain is severe and worse with attempted ambulation. Patient denies recent injury. She is not sure if she may have injured it during original fall on 927 but did not have pain in her hip after the fall. Patient also notes pain in her jaw that is persistent. She has been taking oxycodone to control pain. Related Data Home Medications Medication Instructions Recorded Confirmed Aspirin Low-Strength 81 mg 81 mg PO DAILY 08/20/12 02/24/23 chewable tablet (aspirin) B-Complex (vitamin B complex) 1 ea PO DAILY 08/20/12 02/24/23 Calci-Chew 500 mg calcium (1,250 500 mg PO DAILY 08/20/12 02/24/23 mg) tablet (calcium carbonate) citalopram 10 mg/5 mL oral solution 40 mg PO HS 08/20/12 02/24/23 folic acid 1 mg tablet 2 mg PO BID 08/20/12 02/24/23 lisinopril 5 mg tablet 10 mg PO DAILY 08/20/12 02/24/23 magnesium chloride 64 mg 64 mg PO BID ##30 05/01/13 02/24/23 (magnesium chloride) tablet,delayed release (Mag 64) insulin glargine 100 unit/mL 25 - 50 unit SQ HS 01/03/16 02/24/23 subcutaneous solution (Lantus U-100 Insulin) Glucophage 1,000 mg tablet 2,000 mg PO DAILY 07/21/22 02/24/23 (metformin) Methotrexate (Anti-Rheumatic) 2.5 10 mg PO .WEEKLY 07/21/22 02/24/23 mg tablets in a dose pack (methotrexate sodium) ascorbate calcium (vitamin C) 500 500 mg PO DAILY 07/21/22 02/24/23 mg tablet glipizide 5 mg tablet, extended 5 mg PO BID 07/21/22 02/24/23 release 24 hr chlorhexidine gluconate 0.12 % 15 ml mucous membrane BID #15 mL 02/08/23 02/24/23 mouthwash (Peridex) metformin 500 mg tablet,extended 2,000 mg PO DAILY 02/08/23 02/24/23 release 24 hr hydromorphone 2 mg tablet 2 mg PO Q8H PRN pain #14 tabs 02/10/23 02/24/23 cephalexin 250 mg/5 mL oral 500 mg (10 mL) PO QID #300 mL 02/24/23 suspension Previous Rx's Medication Instructions Recorded magnesium chloride 64 mg 64 mg PO BID ##30 05/01/13 (magnesium chloride) tablet,delayed release (Mag 64) chlorhexidine gluconate 0.12 % 15 ml mucous membrane BID #15 mL 02/08/23 mouthwash (Peridex) hydromorphone 2 mg tablet 2 mg PO Q8H PRN pain #14 tabs 02/10/23 cephalexin 250 mg/5 mL oral 500 mg (10 mL) PO QID #300 mL 02/24/23 suspension Allergies Allergy/AdvReac Type Severity Reaction Status Date / Time Sulfa (Sulfonamide Allergy Intermediate Nausea Unverified 02/24/23 11:19 Antibiotics) General Stated Complaint: GenMedical PETEY: 3 PFSH All Active Problems (Updated 02/24/23 @ 16:20 by Kem Maldonado MD) Jaw pain (Acute) Acute pain of right hip (Acute) Lip laceration (Acute) History of recent fall (Acute) Immunization, tetanus-diphtheria (Acute) Closed fracture of left ramus of mandible (Acute) Anemia (Chronic) Hypertension (Chronic) Diabetes (Chronic) Uveitis (Acute) Nail dystrophy (Acute) Plantar fasciitis (Acute) Medical History Paresthesia of arm R ulnar distribution; noted 01/31/22, Dr. Castaneda Low back pain acute, noted 02/04/22 Depression Insomnia Social History Smoking/Tobacco Use Status: Current every day Smoking risk assessment performed?: Yes Alcohol Intake: never Drug use: Never Do you feel safe at home: Yes Do you feel safe in your relationship?: Yes Exam Const General: cooperative and no acute distress HENMT Other: Small healing wound to the chin with surrounding erythema that is mild Eyes Conjunctivae: normal conjunctivae Sclera: normal sclerae Resp Auscultation: clear to auscultation bilaterally, no rales, no rhonchi and no wheezes Cardio Rate: regular rate and not tachycardic Rhythm: regular rhythm Heart Sounds: murmur GI Palpation: soft, not firm, no guarding, no masses, not rigid and nontender Skin General skin exam: no rashes or lesions noted Neuro General: patient alert, patient awake and tone normal Extrem General: other (Right lower extremity distal motor and sensation intact ) Right lower extremity: hip/thigh Details: tenderness Location: of the hip Location: laterally and posterolaterally Other: Patient has difficulty ranging her hip even passively Course Vital Signs Vital signs: Vital Signs Temperature 36.8 C 02/24/23 10:40 Pulse 69 02/24/23 10:40 Respiratory Rate 16 02/24/23 10:40 Blood Pressure 153/59 H 02/24/23 10:40 Pulse Oximetry 97 02/24/23 10:40 Temperature 36.8 C 02/24/23 10:40 Temperature Source Temporal Artery Scan 02/24/23 10:40 Pulse 69 02/24/23 10:40 Respiratory Rate 18 02/24/23 11:28 Respiratory Effort Normal 02/24/23 11:28 Respiratory Depth Normal 02/24/23 11:28 Respiratory Pattern Normal 02/24/23 11:28 Blood Pressure 153/59 H 02/24/23 10:40 Blood Pressure Position Sitting 02/24/23 10:40 Pulse Oximetry 97 02/24/23 10:40 Oxygen Delivery Method Room Air 02/24/23 10:40 Oxygen Flow Rate 0 02/24/23 10:40 Pain Level 9 02/24/23 10:40 Lab/Test Results Lab/Test Results: Laboratory Tests Range/Units 02/24/23 12:12 WBC (4.4-10.8) 10^3/uL 11.32 H RBC (3.93-5.22) 10^6/uL 3.86 L Hgb (11.2-15.7) g/dL 11.9 Hct (36.0-46.0) % 36.3 MCV (80-95) fL 94 MCH (27.0-33.0) pg 30.8 MCHC (32.0-36.0) % 32.8 RDW (11.7-14.6) % 12.4 Plt Count (130-400) 10^3/uL 390 MPV (8.0-11.0) fL 9.0 Immature Gran % 0.4 Neutrophils % 79.6 Lymphocytes % 9.1 Monocytes % 10.1 Eosinophils % 0.4 Basophils % 0.4 Nucleated RBC % (0.0-0.3) % 0.0 Absolute Neutrophils (1.2-6.7) 10^3/uL 9.01 H Absolute Lymphocytes (1.2-3.4) 10^3/uL 1.03 L Absolute Monocytes (0.1-0.8) 10^3/uL 1.14 H Absolute Eosinophils (0.0-0.7) 10^3/uL 0.05 Absolute Basophils (0.0-0.2) 10^3/uL 0.05 Sodium (136-145) mmol/L 133 L Potassium (3.5-5.1) mmol/L 4.2 Chloride (98-107) mmol/L 97 L Carbon Dioxide (21.0-32.0) mmol/L 26.1 Anion Gap (3-11) mmol/L 9.9 BUN (7-18) mg/dL 12 Creatinine (0.55-1.02) mg/dL 0.9 Est GFR (CKD-EPI 2020) (mL/min/1.73m2) 66.26 Glucose (74-106) mg/dL 205 H Calcium (8.5-10.1) mg/dL 9.2 Total Bilirubin (0.2-1.0) mg/dL 0.7 AST (15-37) U/L 31 ALT (14-59) U/L 38 Alkaline Phosphatase (46-116) U/L 102 Troponin I (<or=60) ng/L < 50 Total Protein (6.4-8.2) g/dL 8.3 H Albumin (3.4-5.0) g/dL 3.3 L
[2023-02-24] MEDS: Ibuprofen 100 MG/5 ML CUP 600 MG PO (16:24)
[2023-02-24] MEDS: Cephalexin 250 MG/5 ML 100 ML BTL 500 MG PO (16:51)
== END 2023-02-24 16:56 | disposition home or self-care (01) ==
PROVIDERS: Emergency Provider Student in an Organized Health Care Education/Training Program; PCP Family Medicine
DX: R68.84 Jaw pain (principal); M25.551 Pain in right hip
CPT/HCPCS: 80053; 96365; 99284; 72192; 84484; 85025

== ENCOUNTER → 2024-01-23 09:47 | Outpatient (BNVA) | payer MEDICARE, SELFPAY | PROVIDERS: PCP Family Medicine; Referring Provider Family Medicine; Visit Provider Student in an Organized Health Care Education/Training Program | DX: M65.331 Trigger finger, right middle finger (principal) | CPT/HCPCS: 99214 ==

== ENCOUNTER 2024-02-01 06:15 | Day surgery (SDC) | payer MEDICARE, SELFPAY ==
[2024-02-01 06:35] VITALS: BP 138/52; PULSE 77; RESP 16; TEMP 36.6; O2SAT 98
[2024-02-01] MEDS: Lactated Ringers 1,000 ML 30 ML IV (06:53)
--- NOTE | 2024-02-01 07:08 | W.PM.DSUDISC ---
Date of service: 02/01/24 Time of Service: 08:00 Discharge Plan Disposition Patient Disposition: Home Condition: Stable Discharge Details Attending Provider: Dillon Bowling Primary Care Provider: Eriberto Castaneda Home Meds and New Rx's Prescriptions: Continued Methotrexate (Anti-Rheumatic) 2.5 mg tablets,dose pack 10 mg PO .WEEKLY glipizide 5 mg tablet extended release 24hr 5 mg PO BID ascorbate calcium (vitamin C) 500 mg tablet 500 mg PO DAILY citalopram 10 MG/5 ML solution 40 mg PO HS aspirin [Aspirin Low-Strength] 81 MG tablet,chewable 81 mg PO DAILY vitamin B complex [B-Complex] 1 EACH tablet 1 ea PO DAILY folic acid 1 MG tablet 2 mg PO BID calcium carbonate [Calci-Chew] 500 MG tablet,chewable 500 mg PO DAILY lisinopril 5 MG tablet 10 mg PO DAILY metformin 500 mg tablet extended release 24 hr 500 mg PO BID magnesium chloride [Mag 64] 64 MG tablet,delayed release (DR/EC) 64 mg PO BID Qty: 30 0RF insulin glargine [Lantus U-100 Insulin] 100 UNIT/ML solution 25 - 50 unit SQ HS mirtazapine 7.5 mg tablet 7.5 mg PO HS Discharge Instructions Additional Instructions: Surgery: Right middle finger trigger release Activity: Protect hand for a few weeks. Gently increase finger motion and hand gripping to prevent stiffness. Recommend elevation to minimize swelling and discomfort. Prescriptions: None Resume home medicines (aspirin tomorrow), use [id number] Tylenol (acetaminophen) as needed for mild pain and ibuprofen (Motrin) or naproxen (Aleve) as needed for moderate to severe pain and swelling. Dressings: Leave dressing in place for 3 days. May then remove and leave open to air or cover incision with Band-Aid. May get wet after 5 days. Follow-up: 10-[address] Bowling Please call the office during business hours with any questions or concerns. Stand Alone Forms: Finn SANTANA) Discharge Orders Discharge Orders: Discharge Order (Routine); Ordered 02/01/24 Ordered By: Carlotta Palma DS: Diagnosis Discharge Diagnosis (1) Trigger finger, right middle finger: Status: Acute
--- NOTE | 2024-02-01 07:16 | W.PM.OP ---
Date of service: 02/01/24 Time of Service: 07:30 Operative Note Operative Note DATE OF PROCEDURE: 02/01/24 PRE-OP DIAGNOSIS: Right middle trigger finger PROCEDURE: Right middle finger trigger release, CPT# 56017 SURGEON: Dillon Bowling [employer] SPECIALIST: None None ANESTHESIA TYPE: Local By Surgeon Refer to Anesthesia Record ESTIMATED BLOOD LOSS: 1 TOURNIQUET TIME: 0 COMPLICATIONS: None Patient was transported to: same day Patient's condition: stable Indications: Please see complete medical record for details. Procedure Description: In the operating room, the patient was positioned supine on the stretcher. All bony prominences were padded. Preoperative antibiotics were omitted. The correct patient, procedure, and side of the procedure were all verified prior to beginning. Local anesthesia was induced about the site with 10cc of 1% lidocaine containing epinephrine buffered with 1 cc of sodium bicarbonate. The Right hand was prepped and draped in the usual sterile fashion. Proper analgesia was confirmed. A small volar longitudinal approach was made overlying the middle finger MCP joint. Soft tissues were swept to the sides and retracted to expose the A1 lazarus. The release was started centrally with a knife and completed at the proximal and distal margins with tenotomy scissors. Care was taken to protect the flexor tendons. The tendons were inspected and showed moderate tenosynovitis, but no significant tearing. Appropriate flexor tendon excursion was confirmed. The patient readily demonstrated full range of motion of the finger without triggering. The small incision was irrigated and then dried. Hemostasis was appropriate. The incision was closed using 3-0 nylon in a horizontal mattress fashion. Xeroform was applied followed by gauze and the hand was gently compressed with an Preston bandage. The patient tolerated local anesthesia without complication and was transferred out of the operating room in a stable condition.
[2024-02-01] MEDS: ceFAZolin 2 GM/50 ML BAG IVPB (07:32)
[2024-02-01] MEDS: Lidocaine 1% Pres-Free W/EPI 1/200,000 10 ML VIAL (07:52)
[2024-02-01] MEDS: Sodium Bicarbonate 50 MEQ/50 ML VIAL (07:53)
[2024-02-01 08:03] VITALS: BP 178/60; PULSE 64; RESP 16; TEMP 36.7; O2SAT 96
== END 2024-02-01 08:20 | disposition home or self-care (01) ==
PROVIDERS: PCP Family Medicine; Visit Provider Student in an Organized Health Care Education/Training Program
PROC: (CPT 26055; principal; 2024-02-01 07:30)
DX: M65.331 Trigger finger, right middle finger (principal)
CPT/HCPCS: 26055; J0690; J2004

== ENCOUNTER 2024-02-14 15:29 | Outpatient (CLI) | payer MEDICARE, SELFPAY ==
--- NOTE | 2024-02-14 10:54 | DI.RAD_ITS ---
Exam(s) XR THUMB LT EXAM: XR THUMB LT EXAM DATE/TIME: CLINICAL HISTORY: THUMB PAIN S/P FALL. TECHNIQUE: 2D digital imaging was performed of the left finger. Two views were obtained. PA/AP, an d lateral views were obtained. COMPARISON: None. FINDINGS: BONES: There is an acute nondisplaced fracture through the proximal metaphysis of the distal phalanx of the thumb. It does not appear to extend into the joint space. No bony destructive lesion is seen . JOINTS: No dislocation is present. Degenerative changes are seen in the interphalangeal joint of the thumb. SOFT TISSUE: Soft tissue swelling of the thumb is present. No radiopaque foreign body or soft tissue gas is seen. IMPRESSION: Acute nondisplaced fracture through the distal phalanx of the thumb. DATA REPOSITORY: RADIATION DOSE DELIVERED:
== END 2024-02-14 15:30 | disposition home or self-care (01) ==
LOC: DIORS 15:29
PROVIDERS: PCP Family Medicine; Referring Provider Family Medicine; Visit Provider Student in an Organized Health Care Education/Training Program
DX: S62.522A Displaced fracture of distal phalanx of left thumb, initial encounter for closed fracture; X58.XXXA Exposure to other specified factors, initial encounter; M25.641 Stiffness of right hand, not elsewhere classified
CPT/HCPCS: 99214; 73140

== ENCOUNTER 2024-04-01 18:42 | Outpatient (REF) | payer MEDICARE, SELFPAY ==
[2024-04-01 16:23] LABS: HCT 35.6 % (36.0-46.0); HGB 11.5 g/dL (11.2-15.7); MCH 30.7 pg (27.0-33.0); MCHC 32.3 % (32.0-36.0); MCV 95 fL (80-95); Platelet Count 301 10^3/uL (130-400); RBC 3.74 10^6/uL (3.93-5.22); RDW 12.6 % (11.7-14.6); RDW-SD 43.8 fL; WBC 7.47 10^3/uL (4.4-10.8)
[2024-04-01 17:06] LABS: ALT 25 U/L (14-59); AST 18 U/L (15-37); Albumin 3.7 g/dL (3.4-5.0); Alkaline Phosphatase 73 U/L (46-116); BUN 24 mg/dL (7-18); CREATININE 1.5 mg/dL (0.55-1.02); Calcium 8.8 mg/dL (8.5-10.1); Chloride 105 mmol/L (98-107); Estimated GFR 35.67 (mL/min/1.73m2); Glucose 172 mg/dL (74-106); Potassium 4.7 mmol/L (3.5-5.1); Sodium 141 mmol/L (136-145); Total Protein 6.8 g/dL (6.4-8.2)
[2024-04-01 17:07] LABS: COMMENT (LAB VIEW ONLY) 131.82 mg/dL; Microalb ug/mg Crea 54.8 ug/mg Cr
== END 2024-04-01 18:43 | disposition home or self-care (01) ==
LOC: NCHCN 18:42
PROVIDERS: PCP Family Medicine; Visit Provider Family Medicine
DX: E11.9 Type 2 diabetes mellitus without complications (principal)
CPT/HCPCS: 80053; 85027; 82043; 82570

== ENCOUNTER 2024-04-03 15:19 | Outpatient (CLI) | payer MEDICARE, SELFPAY ==
--- NOTE | 2024-04-03 10:15 | DI.RAD_ITS ---
Exam(s) XR THUMB LT EXAM: XR THUMB LT INDICATION: F/U FRACTURE. COMPARISON: CR XR THUMB LT from 02/14/2024 TECHNIQUE: 2D digital imaging was performed. Two views. FINDINGS: Stable alignment of the fracture of the base of the distal phalanx of the thumb. Fracture line remai ns visible. No new abnormalities. DATA REPOSITORY: RADIATION DOSE DELIVERED:
== END 2024-04-03 15:20 | disposition home or self-care (01) ==
LOC: DIORS 15:20
PROVIDERS: PCP Family Medicine; Referring Provider Family Medicine; Visit Provider Student in an Organized Health Care Education/Training Program
DX: S62.522D Displaced fracture of distal phalanx of left thumb, subsequent encounter for fracture with routine healing; X58.XXXD Exposure to other specified factors, subsequent encounter
CPT/HCPCS: 99213; 73140

== ENCOUNTER 2024-04-19 15:14 | Outpatient (CLI) | payer MEDICARE, SELFPAY ==
--- NOTE | 2024-04-19 | DI.RAD_ITS ---
Exam(s) XR HIP LT COMPLETE AP PELVIS EXAM: XR HIP LT COMPLETE AP PELVIS CLINICAL HISTORY: PAIN LEFT HIP M25.552. TECHNIQUE: 2D digital imaging was performed of the left hip. Two views were obtained. AP pelvis an d lateral left hip views were obtained. COMPARISON: CR LUMBAR SPINE COMPLETE from 05/14/2015 CR THORACIC SPINE from 05/14/2015 FINDINGS: BONES: No acute fracture is present. No bony destructive lesion is seen. JOINTS: No dislocation present. There is mild narrowing of the left hip joint space. The hip is othe rwise unremarkable. The sacroiliac joints and symphysis pubis are intact. There are mild degenerati ve changes seen in the lower lumbar spine. SOFT TISSUE: Normal. IMPRESSION: Mild joint space narrowing of the hips bilaterally. No acute abnormality. DATA REPOSITORY: RADIATION DOSE DELIVERED:
== END 2024-04-19 15:34 ==
LOC: DI 15:14
PROVIDERS: PCP Family Medicine; Visit Provider Nurse Practitioner Family
DX: M16.0 Bilateral primary osteoarthritis of hip (principal)
CPT/HCPCS: 73502

== ENCOUNTER 2024-11-05 14:27 | Outpatient (REF) | payer MEDICARE, SELFPAY ==
[2024-11-05 20:32] LABS: HCT 39.8 % (36.0-46.0); HGB 12.6 g/dL (11.2-15.7); MCH 29.7 pg (27.0-33.0); MCHC 31.7 % (32.0-36.0); MCV 94 fL (80-95); MPV 9.8 fL (8.0-11.0); Platelet Count 324 10^3/uL (130-400); RBC 4.24 10^6/uL (3.93-5.22); RDW 12.7 % (11.7-14.6); RDW-SD 43.5 fL; WBC 4.45 10^3/uL (4.4-10.8)
[2024-11-05 20:43] LABS: ALT 26 U/L (14-59); AST 19 U/L (15-37); Albumin 4.3 g/dL (3.4-5.0); Alkaline Phosphatase 63 U/L (46-116); Anion Gap 9.5 mmol/L (3-11); BUN 32 mg/dL (7-18); Bilirubin, Total 0.6 mg/dL (0.2-1.0); CO2 28.5 mmol/L (21.0-32.0); CREATININE 1.9 mg/dL (0.55-1.02); Chloride 103 mmol/L (98-107); Estimated GFR 26.86 (mL/min/1.73m2); Glucose 78 mg/dL (74-106); Potassium 4.8 mmol/L (3.5-5.1); Sodium 141 mmol/L (136-145); Total Protein 7.4 g/dL (6.4-8.2); Uric Acid 6.7 mg/dL (2.6-6.0)
== END 2024-11-05 14:28 | disposition home or self-care (01) ==
LOC: NCHCN 14:27
PROVIDERS: PCP Family Medicine; Visit Provider Family Medicine
DX: M79.671 Pain in right foot (principal)
CPT/HCPCS: 80053; 85027; 84550

== ENCOUNTER 2024-11-07 09:41 | Outpatient (CLI) | payer MEDICARE, SELFPAY ==
--- NOTE | 2024-11-07 13:14 | DI.RAD_ITS ---
Exam(s) XR FOOT RT COMPLETE EXAM: XR FOOT RT COMPLETE CLINICAL HISTORY: RIGHT FOOT PAIN, M79.671. TECHNIQUE: 2D digital imaging was performed of the right foot. Three images were obtained. AP, oblique and lateral views were obtained. COMPARISON: CR XR FOOT RT COMPLETE from 07/12/2022 FINDINGS: BONES: No acute fracture is present. No bony destructive lesion is seen. JOINTS: No dislocation present. There are mild degenerative changes seen at the 1st MTP joint. The joint spaces are otherwise well maintained. SOFT TISSUE: Normal. IMPRESSION: Mild degenerative changes seen at the 1st MTP joint. DATA REPOSITORY: RADIATION DOSE DELIVERED:
== END 2024-11-07 10:01 ==
LOC: DI 09:41
PROVIDERS: PCP Family Medicine; Visit Provider Family Medicine
DX: M79.671 Pain in right foot (principal)
CPT/HCPCS: 73630

== ENCOUNTER 2025-04-03 13:42 | Outpatient (REF) | payer MEDICARE, SELFPAY ==
[2025-04-03 16:14] LABS: Microalb ug/mg Crea 18.0 ug/mg Cr
== END 2025-04-03 13:43 | disposition home or self-care (01) ==
LOC: NCHCN 13:42
PROVIDERS: PCP Family Medicine; Visit Provider Family Medicine
DX: E11.9 Type 2 diabetes mellitus without complications (principal)
CPT/HCPCS: 82043; 82570